=== PATIENT | female | born 1965 | race Caucasian/White ===

== ENCOUNTER 2016-12-10 21:18 | Inpatient (IN) | payer MEDICAID, OTHER ==
[~2016-12-10] VITALS: Ht 162.6 cm; Wt 64.9 kg
--- NOTE | 2016-12-10 21:46 | NUR ---
PT BIBRA, PT "FOUND ON THE SIDEWALK INFRONT OF APARTMENT" PER RA POSSIBLE EOTH. PT NONVERBAL. RR EVEN AND UNLABORED. NO SOB NOTED. NAD NOTED. NO NVD AT THIS TIME. PT GOWNED AND PLACED ON MONITOR WAITING FOR MD GOMEZ.
--- NOTE | 2016-12-10 21:59 | NUR ---
DR. MC AT BEDSIDE FOR EVAL.
[2016-12-10] MEDS ORDERED: NALOXONE HCL 0.4 MG/ML AMPUL IV ONE ×2 (22:00→22:30)
--- NOTE | 2016-12-10 22:00 | NUR ---
PT NOTED WITH PINNED POINT PUPILS
[2016-12-10] MEDS ORDERED: NALOXONE PREFILLED SYRINGE 2 MG/2 ML SYRINGE ONE ×2 (22:01→22:12)
--- NOTE | 2016-12-10 22:08 | NUR ---
NACRAN 2MG IVP GIVEN, VERBAL ORDERS PER DR. MC.
--- NOTE | 2016-12-10 22:10 | NUR ---
DR. DEVINE AT BEDSIDE. VERBAL ORDERS TO GIVE PT IV 1L NS BOLUS NOW, PT MEDICATED.
[2016-12-10 22:15] LABS: BASOPHILS % (AUTO) 0.5 % (0.0-2.0); EOSINOPHILS # (AUTO) 0.2 /CMM (0.0-0.7); EOSINOPHILS % (AUTO) 2.3 % (0.0-6.0); HEMATOCRIT 40 % (33-45); HEMOGLOBIN 13.4 g/dL (11.5-14.8); LYMPHOCYTES # (AUTO) 3.1 /CMM (0.8-4.8); LYMPHOCYTES % (AUTO) 43.1 % (20.0-44.0); MEAN CORPUSCULAR HEMOGLOBIN 33 PG (26.0-33.0); MEAN CORPUSCULAR HGB CONC 33 g/dl (31.0-36.0); MEAN CORPUSCULAR VOLUME 98 fL (82-100); MONOCYTES # (AUTO) 0.5 /CMM (0.1-1.30); MONOCYTES % (AUTO) 7.3 % (2.0-12.0); NEUTROPHILS # (AUTO) 3.3 /CMM (1.8-8.9); NEUTROPHILS % (AUTO) 46.8 % (43.0-81.0); PLATELET COUNT (AUTO) 331 /CMM (150-450); RDW COEFFICIENT OF VARIATION 13.8 (11.5-15.0); RED BLOOD CELL COUNT(AUTO) 4.08 MIL/uL (4.0-5.2); WHITE BLOOD COUNT (AUTO) 7.1 K/uL (4.3-11.0)
--- NOTE | 2016-12-10 22:19 | NUR ---
NARCAN 2MG IVP GIVEN PER DR. DEVINE VERBAL ORDERS.
--- NOTE | 2016-12-10 22:21 | NUR ---
URINE COLLECTED. CALLED LAB FOR CONCRETE BATCH PLANT OPERATOR.
[2016-12-10 22:25] LABS: CALCIUM, SERUM 8.6 mg/dL (8.5-10.1); CARBON DIOXIDE 27 mmol/L (21-32); CHLORIDE 104 mmol/L (98-107); CREATININE 0.6 mg/dL (0.6-1.3); GLUCOSE 97 mg/dL (74-106); POTASSIUM 3.2 mmol/L (3.5-5.1); SODIUM SERUM 141 mmol/L (136-145); UREA NITROGEN, BLOOD 2 mg/dL (7-18)
--- NOTE | 2016-12-10 22:25 | NUR ---
PT TO RADIOLOGY FOR CT.
[2016-12-10 22:29] LABS: PROTHROMBIN TIME 10.7 SECS (9.5-12.7)
[2016-12-10] MEDS ORDERED: IV NS 0.9% 1,000 ML BAG IV ONE (22:30)
--- NOTE | 2016-12-10 22:30 | NUR ---
PT RETURNED FROM CT.
[2016-12-10 22:31] LABS: ACETAMINOPHEN 0 ug/ml (10-30); ALANINE AMINOTRANSFERASE 30 U/L (12-78); ALBUMIN 3.7 g/dL (3.4-5.0); ALCOHOL, BLOOD 123 mg/dL (0-0); ALKALINE PHOSPHATASE 56 U/L (46-116); ASPARTATE AMINOTRANSFERASE 27 U/L (15-37); BILIRUBIN,DIRECT 0.1 mg/dL (0.0-0.2); BILIRUBIN,TOTAL 0.3 mg/dL (0.2-1.0); TOTAL PROTEIN, SERUM 6.4 g/dL (6.4-8.2)
[2016-12-10 22:33] LABS: TROPONIN I < 0.017 ng/mL (0.00-0.056)
--- NOTE | 2016-12-10 22:39 | NUR ---
RECTAL TEMP 96.2 DR. DEVINE MADE AWARE
[2016-12-10 22:45] LABS: APPEARANCE,URINE CLEAR (CLEAR); BILIRUBIN,URINE NEGATIVE (NEGATIVE); BLOOD, URINE NEGATIVE Ery/uL (NEGATIVE); KETONES,URINE NEGATIVE (NEGATIVE); LEUKOCYTE ESTERASE ,URINE NEGATIVE (NEGATIVE); NITRITE, URINE NEGATIVE (NEGATIVE); PROTEIN,URINE NEGATIVE (NEGATIVE); UGLUCOSE NEGATIVE (NEGATIVE); UROBILINOGEN,URINE 0.2 EU/dL (0.2)
[2016-12-10 22:49] LABS: COLOR,URINE STRAW (YELLOW)
--- NOTE | 2016-12-11 02:59 | NUR ---
PT RESPONSIVE TO PAINFUL STIMULI
[2016-12-11] MEDS ORDERED: IV NS 0.9% 1,000 ML BAG IV ONE (04:30)
--- NOTE | 2016-12-11 05:10 | NUR ---
PT RESPONSIVE TO VERBAL STIMULI. ABLE TO STATE NAME. DR. DEVINE MADE AWARE.
--- NOTE | 2016-12-11 07:13 | NUR ---
REPORT GIVEN TO TIN POST FOR JEANIE.
--- NOTE | 2016-12-11 07:15 | NUR ---
RECEIVED PATIENT, ALERT TO PAINFUL STIMULI. VITALS STABLE. WILL CONTINUE TO MONITOR.
--- NOTE | 2016-12-11 10:33 | NUR ---
PATIENT REMAINS LETHARGIC AND UNAROUSABLE, BUT VITALS REMAIN STABLE. PATIENT IS SLEEPING, WILL CONTINUE TO MONITOR.
[2016-12-11] MEDS ORDERED: POTASSIUM CL. PREMIX PERIPHER. 200 ML ONE (11:30)
[2016-12-11] MEDS: POTASSIUM CL. PREMIX PERIPHER. 50 ML IV SCH ×4 (11:36→15:08)
--- NOTE | 2016-12-11 12:34 | NUR ---
CALLED [facility] LAB MANAGER WAS PAGED.
--- NOTE | 2016-12-11 12:46 | NUR ---
DR CANNON ON THE PHONE WITH DR YODER.
--- NOTE | 2016-12-11 13:00 | NUR ---
PT PRESENT TO THE NAOMY, A/O x1 MUMBLING AND TRYING TO GET OFF THE STRETCHER. PATIENT IS SAFELY TRANSFERRED FROM THE STRETCHER TO THE BED WITHOUT ISSUE PATIENT IS CURRENTLY RECEIVING ELECTROLYTE REPLACEMENT . IV ACCESS INCLUDED 20 GAUGE RIGHT WRIST PATIENT NO REDNESS OR S/S OF INFECTION NOTED . PT IS REORIENTED AND LINENS CHANGED, DIAPER APPLIED , PATIENT HAS BEEN INCREASINGLY BECOMING AGGRESSIVE AND TRYING TO GET OUT OF BED. PATIENT IS EXTREMELY UNSTEADY AND GENERALIZED WEAKNESS EXPRESSED, PT TRIES TO REMOVE IV ACCESS, CHARGE NURSE SOON STATES TO PLACE PATIENT IN BILATERAL WRIST RESTRAINTS FOR SAFETY BED IN LOWEST POSITION AND BED ALARM ON . RAIL UP. RN WILL CONTINUE TO MONITOR THE PATIENT FOR SAFETY AND REORIENT THE PATIENT NEEDED.
--- NOTE | 2016-12-11 13:29 | NUR ---
REPORT GIVEN TO FADY CASTLE FOR JEANIE.
[2016-12-11] MEDS ORDERED: HYDROCODONE/APAP 5/325MG 1 EACH TABLET PO PRN (13:30)
[2016-12-11] MEDS ORDERED: Z GUARD REMEDY 2 OZ OINT TP PRN (13:30)
[2016-12-11] MEDS ORDERED: MAG HYDROX/AL HYDROX/SIMETH 30 ML UDC PO PRN (13:30)
[2016-12-11] MEDS ORDERED: ONDANSETRON HCL/PF 4 MG/2 ML VIAL IVP PRN (13:30)
[2016-12-11] MEDS ORDERED: ACETAMINOPHEN 325 MG TABLET PO PRN (13:30)
[2016-12-11] MEDS ORDERED: MAGNESIUM HYDROXIDE 30 ML UDC PO PRN (13:30)
--- NOTE | 2016-12-11 13:51 | NUR ---
PATIENT TRANSPORTED TO [facility] VIA STRETCHER WITH EMT AND RN FOR ADMISSION. 1 BAG OF POTASSIUM ENDORSED TO RNFADY. PATIENT STABLE.
[2016-12-11] MEDS: IV NS 0.9% 1,000 ML IV PRN (19:44)
[2016-12-11 20:00] VITALS: BP 145/86
--- NOTE | 2016-12-11 20:00 | NUR ---
HARNESS PULLER FINAL PATIENT STABLE WITHOUT COMPLAINT 2 L NASAL CANULA PRESENT. PATIENT FALLING IN AND OUT OF SLEEP STILL DROWSY , BILATERAL WRIST RESTRAINT PRESENT. PM RN NOTIFIED AND REPORT O PATIENT GIVEN. PHOTOS TAKEN AND PLACED IN CHART . NO FURTHER ISSUES OR COMPLAINTS AT THIS TIME . WILL ENDORSE TO PM SHIFT FOR CONTINUATION OF CARE.
--- NOTE | 2016-12-11 21:30 | NUR ---
TELE-1/FAMILY DEVELOPMENT SPECIALIST PT TRANSFERRED TO ROOM 114-1 FOR 1:1 SITTER. PT FOUND TO HAVE PRESCRIPTION BOTTLE CONTAINING METHYLPHENIDATE ER 27MG AT BEDSIDE MEDICATION INVENTORIED AND SENT TO PHARMACY.
[2016-12-11] MEDS ORDERED: ZOLPIDEM TARTRATE 5 MG TABLET PO PRN (22:00)
[2016-12-12] VITALS: BP 134/75
[2016-12-12 04:00] VITALS: BP 128/90
--- NOTE | 2016-12-12 04:26 | NUR ---
TELE-1/LIFE SCIENCES TEACHER PT MUCH MORE ALERT AT THIS TIME. ANSWERING QUESTIONS APPROPRIATELY. A/Ox3. PT VERBALIZED THAT SHE WOULD COOPERATE WITH TREATMENT. RESTRAINTS RELEASED. PT AMBULATED TO THE RESTROOM WITH STEADY GAIT. 1:1 SITTER AT BEDSIDE FOR PT SAFETY.
[2016-12-12 06:22] LABS: BASOPHILS % (AUTO) 0.2 % (0.0-2.0); EOSINOPHILS # (AUTO) 0.1 /CMM (0.0-0.7); EOSINOPHILS % (AUTO) 1.5 % (0.0-6.0); HEMATOCRIT 40 % (33-45); HEMOGLOBIN 13.4 g/dL (11.5-14.8); LYMPHOCYTES # (AUTO) 1.6 /CMM (0.8-4.8); LYMPHOCYTES % (AUTO) 19.8 % (20.0-44.0); MEAN CORPUSCULAR HEMOGLOBIN 33 PG (26.0-33.0); MEAN CORPUSCULAR HGB CONC 34 g/dl (31.0-36.0); MEAN CORPUSCULAR VOLUME 99 fL (82-100); MONOCYTES # (AUTO) 0.8 /CMM (0.1-1.30); MONOCYTES % (AUTO) 10.1 % (2.0-12.0); NEUTROPHILS # (AUTO) 5.6 /CMM (1.8-8.9); NEUTROPHILS % (AUTO) 68.4 % (43.0-81.0); PLATELET COUNT (AUTO) 295 /CMM (150-450); RDW COEFFICIENT OF VARIATION 13.7 (11.5-15.0); RED BLOOD CELL COUNT(AUTO) 4.03 MIL/uL (4.0-5.2); WHITE BLOOD COUNT (AUTO) 8.2 K/uL (4.3-11.0)
[2016-12-12 06:44] LABS: CALCIUM, SERUM 8.7 mg/dL (8.5-10.1); CREATININE 0.7 mg/dL (0.6-1.3); MAGNESIUM 1.9 mg/dL (1.8-2.4); PHOSPHORUS 3.1 mg/dL (2.5-4.9)
--- NOTE | 2016-12-12 07:30 | NUR ---
RN NOTES RECEIVED PT RESTING IN BED, ASLEEP AT THIS TIME. SITTER AT BEDSIDE. ON O2 2LPM VIA NC. NO RESP DISTRESS NOTED. SR ON TELE MONITOR HR 90 AT THIS TIME. NO RESTRAINTS NOTED AT THIS TIME. KEPT COMFORTABLE, SFATY MAINTAINED. WILL CONT TO MONITOR. CALL LIGHT WITHIN REACH
[2016-12-12 08:00] VITALS: BP 132/69
[2016-12-12] MEDS: FOLIC ACID 1 MG TABLET PO SCH (08:52)
[2016-12-12] MEDS: PANTOPRAZOLE 40 MG TABLET.DR PO SCH (08:52)
[2016-12-12] MEDS: THIAMINE HCL 100 MG TABLET PO SCH (08:52)
[2016-12-12] MEDS: IV NS 0.9% 1,000 ML IV PRN (08:56)
[2016-12-12] MEDS: MULTIVITAMINS,THERAGRAN 1 UDTAB TABLET PO SCH (08:57)
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
[2016-12-12 12:00] VITALS: BP 125/81
[2016-12-12 16:00] VITALS: BP 139/88
--- NOTE | 2016-12-12 19:17 | NUR ---
RN NOTES PT RESTING IN BED, NO ACUTE CHANGE IN CONDITION. STILL NOTED WITH EPISODES OF CONFUSION AT TIMES. SITTER AT BEDSIDE, PT ABLE TO GO TO THE BATHROOM BRP. ALL DUE MEDS GIVEN, NEEDS ATTENDED. MONITORED PT ACCORDINGLY. ENDORSED TO LOUIS CASTLE FOR CONTINUITY OF CARE
[2016-12-12 20:00] VITALS: BP 121/64
--- NOTE | 2016-12-12 20:00 | NUR ---
SALES ACTIVITY MANAGER NOTES RECEIVED PTS ON BED AWAKE AND RESPONSIVE , ON TELE SR ON THE MONITOR , NO SOB NO DISTRESS NOTED . V/S STABLE AFEBRILE , WITH LEFT FA G#20 INTACT AND PATENT .IVF OF NS AT 100 CC/HR INFUSING WELL.ALL NEEDS ATTENDED TOO CALL LIGHT WITHIN REACH . KEPT PS CLEAN DRY AND COMFORTABLE.WITH 1:1 SITTER AT BEDSIDE.
[2016-12-13] VITALS: BP 115/70
[2016-12-13 04:00] VITALS: BP 117/75
[2016-12-13] MEDS: IV NS 0.9% 1,000 ML IV PRN (06:32)
--- NOTE | 2016-12-13 06:58 | NUR ---
SCIENTIFIC RECRUITER NOTES PTS REMAINS ON BED AWAKE AND RESPONSIVE , REMAINS ON TELE SR ON THE MONITOR . NO SIGNIFICANT CHANGE NOTED WILL ENDORSE TO RN DAY SHIFT FOR CONTINUITY OF CARE.ON 1:1 SITTER.
--- NOTE | 2016-12-13 07:00 | NUR ---
MAMMA LOGIST INITIAL NOTES REPORT RECEIVED AT THE BEDSIDE. PATIENT IS SLEEPING. NO SOB OR DISTRESS NOTED AT THIS TIME. PATIENT DOES NOT APPEAR TO BE IN PAIN. HEART RATE SR ON THE MONITOR. BED IN A LOW POSITION, SITTER AT THE BEDSIDE. WILL CONTINUE TO MONITOR.
[2016-12-13 08:00] VITALS: BP 107/63
[2016-12-13] MEDS: THIAMINE HCL 100 MG TABLET PO SCH (08:09)
[2016-12-13] MEDS: FOLIC ACID 1 MG TABLET PO SCH (08:09)
[2016-12-13] MEDS: PANTOPRAZOLE 40 MG TABLET.DR PO SCH (08:10)
[2016-12-13] MEDS: MULTIVITAMINS,THERAGRAN 1 UDTAB TABLET PO SCH (09:00)
--- NOTE | 2016-12-13 12:06 | NUR ---
RN NOTES PATIENT IS ASKING TO HAVE IV FLUIDS REMOVED FOR NOW. STATES THAT SHE WANTS A BREAK. WILL HOLD FLUIDS AND TELL DR YODER. Addendum: 12/13/16 at 1207 by JANIA BAEZ RN HAVE ENCOURAGED PATIENT TO INCREASE ORAL INTAKE. PATIENT STATES UNDERSTANDING.
[2016-12-13 16:00] VITALS: BP 119/77
--- NOTE | 2016-12-13 16:04 | NUR ---
RN NOTES RECEIVED A CALL FROM THE PATIENT'S MOTHER. MOTHER IS CONCERNED THAT THE REASON THE PATIENT IS IN THE HOSPITAL IS BECAUSE SHE MAY HAVE TRIED TO COMMIT SUICIDE. SHE STATES THAT SHE HAS MADE TWO OR THREE ATTEMPTS IN THE LAST THREE MONTHS. CALLED DR YODER TO INFORM AND SEE IF HE WOULD LIKE TO ADD A PSYCH CONSULT. WAITING FOR A RETURN CALL.
--- NOTE | 2016-12-13 16:40 | NUR ---
RN NOTES TALKED TO DR YODER WHO STATES THAT IT IS FINE FOR THE PATIENT TO BE OFF IV FLUIDS AND TO ENCOURAGE PO INTAKE. MD ASKS TO HAVE A PSYCH CONSULT PLACED FOR THE PATIENT. ORDERS CARRIED OUT.
--- NOTE | 2016-12-13 18:41 | NUR ---
MS RN CLOSING NOTES NO SIGNIFICANT CHANGES IN PATIENT CONDITION THROUGHOUT THE SHIFT. NO SOB OR DISTRESS NOTED AT THIS TIME. PATIENT DENIES PAIN. BED IN A LOW POSITION, CALL LIGHT WITHIN PATIENT REACH. WILL ENDORSE FOR JEANIE.
--- NOTE | 2016-12-13 19:30 | NUR ---
MS RN NOTE: PATIENT RESTING IN BED, NO ACUTE DISTRESS NOTED. BREATHING EVEN AND UNLABORED, NO SOB NOTED. IV TO LFA IN PLACE. BED LOCKED AND IN LOWEST POSITION, CALL LIGHT IN REACH. WILL CONTINUE TO MONITOR.
--- NOTE | 2016-12-13 20:00 | NUR ---
MS RN NOTE: PATIENT LOOKING FOR KEYS, NOT IN PATIENT BAG AND NOT LISTED IN BELONGINGS LIST FROM ER. INFORMED PATIENT THAT KEYS WERE NOT LISTED WHEN SHE ARRIVED TO OUR ER. WILL CONTINUE TO MONITOR.
--- NOTE | 2016-12-14 00:30 | NUR ---
MS RN NOTE: PATIENT CONTINUES TO REFUSE IV FLUIDS, ENCOURAGE ORAL FLUIDS. MD AWARE. WILL CONTINUE TO MONITOR.
--- NOTE | 2016-12-14 06:05 | NUR ---
MS RN NOTE: PATIENT RESTING IN BED, NO ACUTE DISTRESS NOTED. BREATHING EVEN AND UNLABORED, NO SOB NOTED. IV TO LFA IN PLACE. BED LOCKED AND IN LOWEST POSITION, CALL LIGHT IN REACH. WILL ENDORSE TO DAY NURSE TO CONTINUE WITH PLAN OF CARE.
--- NOTE | 2016-12-14 07:10 | NUR ---
ms rn initial notes Received patient in bed, asleep, head of bed elevated, no SOB or distress noted. On room air and tolerated well. Left forearm IV site # 20 intact and patent. No IVF infusing as endorsed by hourly shift nurse patient is refusing and MD aware. Kept patient clean and comfortable in bed, call light with in patient reach, will continue to monitor accordingly. Sitter at bedside for constant monitoring.
[2016-12-14] MEDS: PANTOPRAZOLE 40 MG TABLET.DR PO SCH (07:35)
[2016-12-14 08:00] VITALS: BP 103/64
[2016-12-14] MEDS: FOLIC ACID 1 MG TABLET PO SCH (08:24)
[2016-12-14] MEDS: THIAMINE HCL 100 MG TABLET PO SCH (08:25)
[2016-12-14] MEDS: MULTIVITAMINS,THERAGRAN 1 UDTAB TABLET PO SCH (08:26)
--- NOTE | 2016-12-14 12:18 | NUR ---
ms county agent notes Discharge instructions given to patient and able to understand instructions. Signed discharge paper and belonging list. Home medication taken from the pharmacy and given to patient. IV access discontinued and applied pressure to prevent bleeding. Informed patient to follow up with primary health care physician in 1-2 weeks and amenable. Per patient she is going to her friend house. Patient called Uber ride for transportation and accompanied by BOILERMAKER HELPER assigned. Patient left the hospital in stable condition via ambulatory. No signs and symptoms of distress or SOB, no complaint of pain or discomfort nor chest pain. MD and charge nurse aware. Vital signs checked and recorded.
== END 2016-12-14 12:17 | disposition home or self-care (01) | DRG 42 ==
LOC: ER 21:23 → TELE 12-11 12:44 → TELE1 12-11 13:58 → MEDSG1 12-13 09:50
PROVIDERS: ADMIT Internal Medicine; ATTEND Internal Medicine
DX: G31.2 Degeneration of nervous system due to alcohol (principal); F13.10 Sedative, hypnotic or anxiolytic abuse, uncomplicated; F10.10 Alcohol abuse, uncomplicated; F17.200 Nicotine dependence, unspecified, uncomplicated; F19.10 Other psychoactive substance abuse, uncomplicated; Y90.6 Blood alcohol level of 120-199 mg/100 ml; Z59.0 Homelessness
CPT/HCPCS: 36415; 70450-TC; 71010-TC; 72125-TC; 80048-TC; 80076-TC; 80305; 81000-TC; 82962-TC; 83735-TC; 84100-TC; 84484-TC; 85025-TC; 85730-TC; 87081-TC; A4606; G0480; J2310; J3480; J7030; Z7610

== ENCOUNTER 2019-09-02 21:26 | Emergency (ER) | payer OTHER ==
[~2019-09-02] VITALS: Ht 165.1 cm; Wt 67.1 kg
--- NOTE | 2019-09-02 21:40 | NUR ---
PT BIBRA [address] C/O LEG PAIN. HX GLF 10 DAYS, PT IS AAOX4, NOT IN RESPIRATORY DISTRESS, V/S STABLE, KEPT RESTED AND COMFORTABLE, WILL CONTINUE TO MONITOR, AWAITING ER MD FOR EVAL.
--- NOTE | 2019-09-02 23:48 | NUR ---
PER DR. KIDD, PT TO SEE SW/CM TOMORROW
--- NOTE | 2019-09-03 00:43 | NUR ---
Patient is resting comfortably in bed. Easily aroused. VSS.
--- NOTE | 2019-09-03 02:22 | NUR ---
PT ASLEEP. VSS.
--- NOTE | 2019-09-03 03:34 | NUR ---
Pt provided with water. vss.
--- NOTE | 2019-09-03 06:29 | NUR ---
PT AWAKE ON BED, NOT IN RESPIRATORY DISTRESS, V/S STABLE, KEPT RESTED AND COMFORTABLE, AWAITING FACING SLITTER FOR PLACEMENT.
[2019-09-03] MEDS ORDERED: ONDANSETRON 4 MG TAB.RAPDIS ONE ×2 (06:36→08:53)
--- NOTE | 2019-09-03 08:24 | NUR ---
PT GIVEN BREAKFAST TRAY VSS
[2019-09-03] MEDS ORDERED: ONDANSETRON HCL/PF 4 MG/2 ML VIAL IV ONE (08:30)
--- NOTE | 2019-09-03 08:55 | NUR ---
PT GIVEN ZOFRAN 8 MG PO PER MD
--- NOTE | 2019-09-03 19:53 | NUR ---
PT ASLEEP. VSS. EASILY AROUSED.
--- NOTE | 2019-09-03 22:01 | NUR ---
PT AWAKE. EASILY AROUSED.
--- NOTE | 2019-09-04 02:26 | NUR ---
PT is asleep. vss.
--- NOTE | 2019-09-04 03:48 | NUR ---
PT YELLING "SHUT UP OLD LADY" TO THE PT IN BED 14. VSS. PT AWAKE AND STABLE..
--- NOTE | 2019-09-04 05:47 | NUR ---
PT ASLEEP. VSS.
--- NOTE | 2019-09-04 08:31 | NUR ---
Assumed care patient is awake laert demands @ times noted patient able to moved side farhan side patient requsting for diaper change done keep patient clean and dry ,food tray given
--- NOTE | 2019-09-04 09:52 | NUR ---
JLUIS CYR CALLED FOR STATUS OF PT. PT WILL BE GOING TO [address] [facility]. WE CAN CALL FOR AMBULANCE AROUND 1030.
--- NOTE | 2019-09-04 10:41 | NUR ---
CALLED CALL THE CAR FOR TRANSPORT TO BOARD AND CARE. [facility] ETA 1230. TRIP NUMBER [id number].
--- NOTE | 2019-09-04 12:24 | NUR ---
EMS here for pick and transfer to Boarding care
[2019-09-04 12:36] VITALS: BP 133/67
--- NOTE | 2019-09-04 12:36 | NUR ---
Patient awake alert DC home to Boarding care in [facility] belongings given and WC
== END 2019-09-04 12:38 | disposition home or self-care (01) ==
LOC: ER 21:26
DX: S82.891A Other fracture of right lower leg, initial encounter for closed fracture (principal); Z59.0 Homelessness; Z98.890 Other specified postprocedural states; X58.XXXA Exposure to other specified factors, initial encounter; Y93.89 Activity, other specified; Y92.89 Other specified places as the place of occurrence of the external cause; Y99.8 Other external cause status
CPT/HCPCS: 96374; 99285; Q0162

== ENCOUNTER 2019-09-19 20:14 | Emergency (ER) | payer OTHER ==
[~2019-09-19] VITALS: Ht 162.6 cm; Wt 54.4 kg
--- NOTE | 2019-09-19 20:23 | NUR ---
BIBRA 860 FOR C/O L FOOT SWELLING AND PAIN X 6 DAYS. - TRAUMA. NOTED W/ R FOOT PAIN DUE TO RX
[2019-09-19] MEDS ORDERED: CEPHALEXIN MONOHYDRATE 500 MG CAPSULE PO ONE ×2 (20:30→20:46)
[2019-09-19] MEDS ORDERED: SULFAMETH/TRIMETH 800/160 MG 1 UDTAB TABLET PO ONE (20:30)
[2019-09-19] MEDS ORDERED: SULFAMETH/TRIMETH 800/160 MG 1 UDTAB TABLET ONE (20:47)
[2019-09-19 20:54] LABS: BASOPHILS # (AUTO) 0.1 /CMM (0.0-0.2); BASOPHILS % (AUTO) 0.4 % (0.0-2.0); EOSINOPHILS % (AUTO) 1.3 % (0.0-6.0); HEMATOCRIT 46 % (33-45); HEMOGLOBIN 15.3 g/dL (11.5-14.8); LYMPHOCYTES # (AUTO) 3.6 /CMM (0.8-4.8); LYMPHOCYTES % (AUTO) 28.5 % (20.0-44.0); MEAN CORPUSCULAR HGB CONC 33 g/dl (31.0-36.0); MEAN CORPUSCULAR VOLUME 95 fL (82-100); MONOCYTES # (AUTO) 0.8 /CMM (0.1-1.30); MONOCYTES % (AUTO) 6.1 % (2.0-12.0); NEUTROPHILS % (AUTO) 63.7 % (43.0-81.0); PLATELET COUNT (AUTO) 323 /CMM (150-450); RED BLOOD CELL COUNT(AUTO) 4.89 MIL/uL (4.0-5.2); WHITE BLOOD COUNT (AUTO) 12.5 K/uL (4.3-11.0)
[2019-09-19 21:06] LABS: CALCIUM, SERUM 10.3 mg/dL (8.5-10.1); CREATININE 0.7 mg/dL (0.6-1.3); POTASSIUM 4.5 mmol/L (3.5-5.1)
[2019-09-19 21:13] LABS: ALBUMIN 4.5 g/dL (3.4-5.0); BILIRUBIN,DIRECT 0.2 mg/dL (0.0-0.2); BILIRUBIN,TOTAL 0.9 mg/dL (0.2-1.0); TOTAL PROTEIN, SERUM 8.1 g/dL (6.4-8.2)
--- NOTE | 2019-09-20 04:15 | NUR ---
IV removed. Catheter intact and site benign. Pressure and 4x4 applied to site. No bleeding noted. Patient discharged to home in stable condition. Written and verbal after care instructions given. Patient verbalizes understanding of instruction and RX. Pt wheeled out. Homeless discharge signed. Pt provided with food and diapers.
[2019-09-20 04:16] VITALS: BP 121/72
== END 2019-09-20 04:16 | disposition home or self-care (01) ==
LOC: ER 20:14
DX: L03.116 Cellulitis of left lower limb (principal); Z98.890 Other specified postprocedural states; Z59.0 Homelessness
CPT/HCPCS: 36415; 73590-TC; 80048-TC; 80076-TC; 83605-TC; 85025-TC; 85730-TC; 87040-TC; 93971-TC

== ENCOUNTER 2019-09-21 15:45 | Inpatient (IN) | payer OTHER ==
[~2019-09-21] VITALS: Ht 162.6 cm; Wt 65.8 kg
--- NOTE | 2019-09-21 16:24 | NUR ---
Social service consult requested by for placement. ANDREW is familiar with the pt. from previous ED visit. FILTRATION SUPERVISOR met with the pt bedside. Pt is alert and oriented x 4 and pleasant with SW. Per pt, she was at [facility] board and care and left the facility on Thursday to meet with her boyfriend. Pt is now requesting to go back to the facility which she left. Pt states, she receives her SSI on Thursday and is willing to pay $600-$650 per month. FILTRATION SUPERVISOR attempted to call pt's boyfriend Dev per her request , no answer. ANDREW consulted with trimming caser Merry in regards to pt. being able to go back to [facility]. Merry to f/u with ADA. FILTRATION SUPERVISOR informed pt that she will not be able to assist her again, if pt decides to the leave the board and care again. Pt understood.
--- NOTE | 2019-09-21 17:01 | NUR ---
SPOKE WITH LESLIE REGARDING STATUS OF PT. JLUIS CYR WILL BE FOLLOWING UP WITH PLACEMENT. WILL CALL US WITH STATUS.
--- NOTE | 2019-09-22 08:31 | NUR ---
ASSESSED PT ON BED AWAKE AND ALERT, NOT IN RESPIRATORY DISTRESS, V/S STABLE, KEPT RESTED AND COMFORTABLE, FOOD TRAY PROVIDED, AWAITING TALENT DIRECTOR FOR PLACEMENT.
--- NOTE | 2019-09-22 11:54 | NUR ---
Social service consult was requested by for placement. SW met with the pt at bedside in the ER. Pt appears to be alert and oriented x4 (time, place, self and situation). Pt states, "I need a place to live. Either back to the facility or an apartment. I cannot be on the streets." Pt states that she was living in a facility that is located on [facility]. SW asked for the name of the facility or a phone number but the pt was unable to provide it. She stated that she was sent to the facility a few days ago from this hospital so SW will research the pt. Pt states that she would like to go back to the facility and states that she will receive her SSI check on September 22. Pt states that she can afford up to $650 a month because she also has her student loans and a bill to pay for. ADA consulted with the Watch Mechanic and was informed that the pt was placed a few days ago with V[facility]ana ([phone]). ADA called Vandana and she stated that she would be willing to take the pt back to the facility after meeting with the next day in the Emergency Room and receiving verbal confirmation from the pt that she would abide by the rules and pay the respected amount. ADA will consult with the MD regarding this plan.
--- NOTE | 2019-09-22 12:05 | NUR ---
ADA called the pts boyfriend, Dev ([phone]), and left a voicemail regarding wanting to speak to him about the pts discharge planning.
--- NOTE | 2019-09-22 12:06 | NUR ---
LOADER HELPER SORTING YARD/ MED RECON PATIENT UNABLE TO PROVIDE ANY INFO RE: HOME MEDICATION. PER PATIENT TO CALL THE FACILITY SHE USED TO LIVE. CALLED [facility] ([phone]), SPOKE WITH L[facility] AND STATED "PATIENT DOES NOT TAKE ANY MEDICATION DURING HER STAY AT THE FACILITY".
--- NOTE | 2019-09-22 12:33 | NUR ---
ADA consulted with the ER MD, Dr. Lucas, and informed him that the pt will be assessed by Vandana who had placed the pt in one of her facilities a few days ago. ADA stated that Vandana wants to ensure that the pt will abide by the rules and make the necessary payments for the facility. stated that he will admit the pt in that case. SW to follow up with the pts placement tomorrow.
--- NOTE | 2019-09-22 13:01 | NUR ---
CALLED [facility] ITS JANIA.
--- NOTE | 2019-09-22 13:18 | NUR ---
BED 328-2
--- NOTE | 2019-09-22 13:22 | NUR ---
BOARD AND CARE ARCHEOLOGIST CLASSICAL WILL COME TOMORROW TO EVALUATE THE PATIENT PER CHARGE NURSE
--- NOTE | 2019-09-22 13:27 | NUR ---
REPORT GIVEN TO CHERELLE RN MS UNIT
--- NOTE | 2019-09-22 13:36 | NUR ---
ADA received a call from the pts sister, Aliza ([phone]), who stated that the pts ex boyfriend called her after the SW left a message for him. Pts sister stated that the pt does not have a boyfriend anymore and that he even has a restraining order against her. Pts sister stated that the pt has been moving around from hospital to hospital and that has made it hard to keep track of her. ADA informed her that the pt may get admitted tonight.
--- NOTE | 2019-09-22 14:15 | NUR ---
MS/miter sawyer New admit from emergency room, for placement tomorrow. Patient uncooperative with admission, refusing to answer any questions or to have skin assessment. Refused to have personal belongings checked. Awaitng admitting orders from Dr Martins.
[2019-09-22 16:10] VITALS: BP 117/67
--- NOTE | 2019-09-22 18:23 | NUR ---
MS/RN End note Patient remains in stable condition, no needs. For placement tomorrow.
[2019-09-22] MEDS ORDERED: ACETAMINOPHEN 325 MG TABLET PO PRN (18:30)
[2019-09-22] MEDS ORDERED: ONDANSETRON HCL/PF 4 MG/2 ML VIAL IVP PRN (18:30)
[2019-09-22] MEDS ORDERED: Z GUARD REMEDY 2 OZ OINT TP PRN (18:30)
--- NOTE | 2019-09-22 19:30 | NUR ---
MS RN NOTES RECEIVED ON BED A/O X3,NO SOB,ASKING FOR DINNER FOOD,GIVEN.NO IV ACCESS,ADMITTED FOR PLACEMENT ONLY.CALL LIGHT IN REACH,NEEDS ANTICIPATED.
[2019-09-22 20:00] VITALS: BP 120/57
[2019-09-22 20:37] VITALS: BP 137/79
--- NOTE | 2019-09-23 07:32 | NUR ---
MS RN NOTES SLEEP WELL AT NIGHT,NO DISTRESS,AWAITING CASE MANAGEMENT FOR PLACEMENT.
--- NOTE | 2019-09-23 07:40 | NUR ---
MS/RN NOTE THE PATIENT IS RECEIVED IN BED. PATIENT IS ALERT AND ORIENTED X3. IN ROOM AIR AND DENIES SOB. RESPIRATION REGULAR AND UNLABORED. DENIES PAIN. THE PATIENT IS NOTED TO HAVE CAM BOOT ON RIGHT FOOT. BOOT ON, ASSESSED AND NO S/S POOR CIRCULATION NOTED. PATIENT HAS NO IV ACCESS. BED LOW AND LOCKED. SIDE RAILS UP X3. CALL LIGHT WITHIN REACH. WILL CONTINUE TO MONITOR.
[2019-09-23 08:00] VITALS: BP 114/75
[2019-09-23 16:01] VITALS: BP 98/50
--- NOTE | 2019-09-23 18:13 | NUR ---
MS/RN NOTE THE PATIENT IS ALERT AND ORIENTED X3. IN ROOM AIR AND SATURATION IS AT 98%. DENIES SOB. RESPIRATION REGULAR AND UNLABORED. DENIES PAIN/ RIGHT LEG WITH CAM BOOT. THE PATIENT IN NO APPARENT DISTRESS. NO AV ACCESS. BED LOW AND LOCKED. SIDE RAILS UP X3. CALL LIGHT WITHIN REACH. WILL ENDORSE TO SYSTEMATIC THEOLOGY PROFESSOR.
--- NOTE | 2019-09-23 19:40 | NUR ---
MS RN NOTES PATIENT RECEIVED SLEEPING IN BED, EASILY AWAKEN, ALERT AND ORIENTED X 3. ON ROOM AIR WITH NO SIGNS OF RESPIRATORY DISTRESS AT THIS TIME, WITH EVEN NON-LABORED BREATHING AND NO SIGNS OF SOB. NO SIGNS OF PAIN OR DISCOMFORT AT THIS TIME, PROVIDED COMFORT MEASURES. SAFETY PRECAUTIONS IN PLACE WITH BED IN THE LOWEST POSITION, BED LOCKED, BED ALARM ON, BILATERAL SIDE RAILS UP, AND CALL LIGHT WITHIN EASY REACH OF PATIENT. WILL CONTINUE TO MONITOR PATIENT.
[2019-09-23 20:00] VITALS: BP 91/48
--- NOTE | 2019-09-24 06:56 | NUR ---
MS RN NOTES PATIENT IN BED CURRENTLY SLEEPING EASILY AWAKEN BY NAME AND LIGHT TOUCH. ON ROOM AIR WITH NO SIGNS OF RESPIRATORY DISTRESS AT THIS TIME. MET ALL OF PATIENT NEEDS. SKIN KEPT CLEAN AND DRY. SAFETY PRECAUTIONS IN PLACE WITH BED LOCKED, BED IN THE LOWEST POSITION, BED ALARM ON, BILATERAL SIDE RAILS UP, AND CALL LIGHT WITHIN EASY REACH OF THE PATIENT, WILL ENDORSE PLAN OF CARE TO UPCOMING DAYSHIFT NURSE.
[2019-09-24 08:00] VITALS: BP 98/51
--- NOTE | 2019-09-24 16:40 | NUR ---
MS/RN NOTE PATIENT ALERT AND ORIENTED X3. DENIES PAIN. DENIES SOB. IN ROOM AIR AND OXYGEN SATURATION IS AT 98%. PROVIDED DISCHARGE EDUCATION AND THE PATIENT VERBALIZED UNDERSTANDING. PATIENT LEFT THE HOSPITAL IN STABLE CONDITION. THE PATIENT LEFT THE HOSPITAL VIA AMBULANCE.
== END 2019-09-24 16:42 | disposition home or self-care (01) | DRG 861 ==
LOC: ER 15:47 → MED 09-22 13:56
PROVIDERS: ADMIT Nurse Practitioner Acute Care; ATTEND Nurse Practitioner Acute Care
DX: Z73.6 Limitation of activities due to disability (principal); Z02.2 Encounter for examination for admission to residential institution; Z59.0 Homelessness
CPT/HCPCS: 87081-TC; G0378

== ENCOUNTER 2019-11-27 05:56 | Inpatient (IN) | payer MEDICAID ==
[~2019-11-27] VITALS: Ht 162.6 cm; Wt 65.3 kg
--- NOTE | 2019-11-27 06:05 | NUR ---
PT LYNN [address] [place] [address]; BODY PAIN X 30DAYS, NO OTHER MED COMPLAINT. AAOX4, VSS, NO ACUTE DISTRESS NOTED. AWAITING FOR MD GOMEZ. PT CONNECTED TO THE COMMUNICATIONS PROJECT MANAGER AND POX
[2019-11-27] MEDS ORDERED: HYDROMORPHONE 1 MG/1 ML DISP.SYRIN IV ONE (07:00)
[2019-11-27] MEDS ORDERED: IV NS 0.9% 1,000 ML BAG IV ONE (07:00)
[2019-11-27] MEDS ORDERED: CLINDAMYCIN 900 MG/6 ML VIAL ONE (07:00)
[2019-11-27] MEDS ORDERED: CLINDAMYCIN 600 MG in IV D5W 100 ML IV ONE (07:00)
[2019-11-27] MEDS ORDERED: PIPERACILLIN /TAZOBACTAM 3.375 G in IV D5W 50 ML IV ONE ×2 (07:00→10:30)
[2019-11-27] MEDS ORDERED: HYDROMORPHONE 1 MG/1 ML DISP.SYRIN ONE (07:01)
[2019-11-27] MEDS ORDERED: PIPERACILLIN /TAZOBACTAM 3.375 G VIAL IV ONE (07:01)
--- NOTE | 2019-11-27 07:10 | NUR ---
PT REFUSED TREATMENT. MADE AWARE
--- NOTE | 2019-11-27 07:16 | NUR ---
WASTED 1 MG OF DILAUDED W/ SARAHI RN
--- NOTE | 2019-11-27 07:22 | NUR ---
Pt. refused chest x-ray and CT exams, Dr. Nix aware.
--- NOTE | 2019-11-27 07:23 | NUR ---
PT VERBALLY ABUSIVE TO STAFF DESPITE THERAPEUTIC INTERVENTIONS.
--- NOTE | 2019-11-27 07:56 | NUR ---
Per report from Previous RN ( night ) patient is homeless declined Chcf and refused to sign.Patient is for Dc awaiting for WC .
--- NOTE | 2019-11-27 08:04 | NUR ---
CALLED CASE MANAGEMENT NO ANSWER WILL CALL BACK AT [id number]
--- NOTE | 2019-11-27 08:52 | NUR ---
CALLED CASE MANAGEMENT STILL NO ANSWER.
--- NOTE | 2019-11-27 08:52 | NUR ---
PT REFUSED VITAL SIGNS MONITORING.
--- NOTE | 2019-11-27 09:22 | NUR ---
CALLED 0232 NOT AVAILABLE. INFORMED HOUSE SUP. SHE WILL GO TO AND SPEAK WITH THEM.
--- NOTE | 2019-11-27 09:40 | NUR ---
JLUIS CYR CALLED WILL FOLLOW UP WITH ADMIN ABOUT GETTING A WHEELCHAIR.
--- NOTE | 2019-11-27 10:25 | NUR ---
PT AGREED TO COOPERATE AND BLOOD WORK FOR ADMISSION.
[2019-11-27] MEDS ORDERED: CLINDAMYCIN 900 MG in IV D5W 100 ML IV ONE (10:30)
--- NOTE | 2019-11-27 10:30 | NUR ---
Patient awake alert refused getting up stated ubable to walk patient verbally abusive to staff and yelling ,noted patient non follows command noted rt lower buttock lesions keep patient clean and dry ,place patient in gown and monitor ,patient agrees for in and out cath sterile technique observed urine obtained and sent to lab Marc Luis CNA assited me ,lab drawn obtained and send to lab
--- NOTE | 2019-11-27 10:43 | NUR ---
MOVE SHEET SUBMITTED AND CALLED FOR TELE BED.
[2019-11-27 10:52] LABS: BASOPHILS # (AUTO) 0.1 /CMM (0.0-0.2); BASOPHILS % (AUTO) 0.6 % (0.0-2.0); EOSINOPHILS % (AUTO) 0.4 % (0.0-6.0); HEMATOCRIT 41 % (33-45); HEMOGLOBIN 13.4 g/dL (11.5-14.8); LYMPHOCYTES % (AUTO) 20.7 % (20.0-44.0); MEAN CORPUSCULAR HGB CONC 33 g/dl (31.0-36.0); MEAN CORPUSCULAR VOLUME 100 fL (82-100); MONOCYTES % (AUTO) 6.9 % (2.0-12.0); NEUTROPHILS # (AUTO) 10.3 /CMM (1.8-8.9); NEUTROPHILS % (AUTO) 71.4 % (43.0-81.0); PLATELET COUNT (AUTO) 455 /CMM (150-450); RED BLOOD CELL COUNT(AUTO) 4.09 MIL/uL (4.0-5.2); WHITE BLOOD COUNT (AUTO) 14.4 K/uL (4.3-11.0)
[2019-11-27] MEDS ORDERED: IV NS 0.9% 500 ML BAG IV ONE (11:00)
[2019-11-27 11:01] LABS: APPEARANCE,URINE Turbid (CLEAR); BILIRUBIN,URINE Negative (NEGATIVE); BLOOD, URINE Negative Ery/uL (NEGATIVE); COLOR,URINE Yellow (YELLOW); KETONES,URINE Negative (NEGATIVE); LEUKOCYTE ESTERASE ,URINE Large (NEGATIVE); NITRITE, URINE Positive (NEGATIVE); PROTEIN,URINE Negative (NEGATIVE); UGLUCOSE Negative (NEGATIVE); UROBILINOGEN,URINE 0.2 EU/dL (0.2)
[2019-11-27 11:02] LABS: CALCIUM, SERUM 8.9 mg/dL (8.5-10.1); CARBON DIOXIDE 27 mmol/L (21-32); CHLORIDE 105 mmol/L (98-107); CREATININE 0.7 mg/dL (0.6-1.3); GLUCOSE 105 mg/dL (74-106); POTASSIUM 4.1 mmol/L (3.5-5.1); SODIUM SERUM 139 mmol/L (136-145); UREA NITROGEN, BLOOD 7 mg/dL (7-18)
[2019-11-27 11:04] LABS: RBC,URINE NONE SEEN /HPF (0-2); WBC,URINE TOO NUMEROUS TO COUN /HPF (0-3)
[2019-11-27 11:05] LABS: BACTERIA,URINE 3+ /HPF (None Seen); SQUAMOUS EPITHELIAL CELL,UR Few /HPF (None Seen)
[2019-11-27 11:08] LABS: ALANINE AMINOTRANSFERASE 18 U/L (12-78); ALBUMIN 2.7 g/dL (3.4-5.0); ALKALINE PHOSPHATASE 83 U/L (46-116); ASPARTATE AMINOTRANSFERASE 19 U/L (15-37); BILIRUBIN,DIRECT 0.1 mg/dL (0.0-0.2); BILIRUBIN,TOTAL 0.4 mg/dL (0.2-1.0); TOTAL PROTEIN, SERUM 5.9 g/dL (6.4-8.2)
--- NOTE | 2019-11-27 11:10 | NUR ---
CALLED [facility]IR[facility] PAGED.
--- NOTE | 2019-11-27 11:11 | NUR ---
Patient calm @ this time explained regarding meds antibiotic noted LAC 20 infusing well no edema no pain
--- NOTE | 2019-11-27 11:14 | NUR ---
Patient is demanding @ all times ,remain verbally abusive and rude comment to staff
--- NOTE | 2019-11-27 11:35 | NUR ---
BED 312-2 NURSE: SHA
--- NOTE | 2019-11-27 11:52 | NUR ---
Report given to Robe CASTLE 312-B
--- NOTE | 2019-11-27 11:53 | NUR ---
Noted patient has bilateral lower Ext .2 + edema Rt foot has support shoe boots she refused to removed the shoe
[2019-11-27 12:00] VITALS: BP 116/70
--- NOTE | 2019-11-27 12:05 | NUR ---
ILLUMINATING ENGINEER NOTES RECEIVED PT FROM E.R. STAFF [facility], ASSISTED TO BED, MADE COMFORTABLE, PT IS AWAKE, ALERT AND ORIENTED, STATED SHE IS HAVING BODY PAINS, NOT IN DISTRESS, NO SIGN OF DISCOMFORT, ROOM SET UP ORIENTATION PROVIDED TO PT, VERBALIZED UNDERSTANDING, LUNCH SERVED, AWAITING ADMITTING ORDERS FROM MD, KEPT PT COMFORTABLE.
--- NOTE | 2019-11-27 13:50 | NUR ---
DISTRIBUTION ENGINEERING TECHNOLOGIST NOTES PT SEEN AND EXAMINED BY DR. CONCEPCION, PLAN OF CARE DISCUSSED WITH PT, VERBALIZED UNDERSTANDING.
[2019-11-27] MEDS ORDERED: HYDROCODONE/APAP 5/325MG 1 EACH TABLET PO PRN (14:00)
[2019-11-27] MEDS ORDERED: MAG HYDROX/AL HYDROX/SIMETH 30 ML UDC PO PRN (14:00)
[2019-11-27] MEDS ORDERED: ONDANSETRON HCL/PF 4 MG/2 ML VIAL IVP PRN (14:00)
[2019-11-27] MEDS ORDERED: MAGNESIUM HYDROXIDE 30 ML UDC PO PRN (14:00)
[2019-11-27] MEDS ORDERED: Z GUARD REMEDY 2 OZ OINT TP PRN (14:00)
[2019-11-27] MEDS ORDERED: ZOLPIDEM TARTRATE 5 MG TABLET PO PRN (14:00)
[2019-11-27] MEDS ORDERED: MORPHINE SULFATE INJ 2 MG/ML DISP.SYRIN IV PRN (14:00)
[2019-11-27] MEDS ORDERED: ACETAMINOPHEN 325 MG TABLET PO PRN (14:00)
[2019-11-27] MEDS ORDERED: FEE PK DOSING 1 MIN EA MC ONE (14:10)
--- NOTE | 2019-11-27 14:11 | NUR ---
BULK STATION OPERATOR NOTES RECEIVED LACTIC ACID RESULT FROM LAB 3.3, DR. CONCEPCION INFORMED, ORDERS RECEIVED, NOTED AND CARRIED OUT.
[2019-11-27] MEDS ORDERED: IV 1/2NS 1000 ML 1,000 ML IV PRN (14:30)
[2019-11-27] MEDS ORDERED: VANCOMYCIN 1 GM in IV D5W 250 ML IV ONE (15:00)
[2019-11-27 16:00] VITALS: BP 88/48
--- NOTE | 2019-11-27 16:00 | NUR ---
RN NOTES PATIENT HAS A BODY TEMPERATURE OF 100.3F. SHE REFUSED TYLENOL. AFTER EXPLAINING TO HER THE RISKS OF NOT TAKING MEDICATION SHE STILL REFUSED THE TYLENOL.
--- NOTE | 2019-11-27 16:00 | NUR ---
RN NOTES ASKED PATIENT IF IT WAS OK TO TAKE PICTURES OF HER WOUNDS. PATIENT GAVE ME PERMISSION FOR ONLY FIVE PICTURES. THE REST OF THE WOUNDS SHE REFUSED TO LET ME TAKE PICTURES OF. OTHER THAN THE WOUND PICTURES I TOOK, SHE PRESENTS WITH SCABS ON BILATERAL ARMS, RIGHT UPPER CHEST, AND ON HER LEFT LOWER LEG. REFUSES TO LET ME ASSESSED HER RIGHT LEG WITH BRACE ON. IS AWARE.
--- NOTE | 2019-11-27 17:00 | NUR ---
RN NOTES PATIENT REFUSED WOUND CLEANING OF RIGHT BUTTOCK WOUND. EXPLAINED TO PATIENT THE RISK OF NOT BEING COMPLIANT TO SKIN CARE AND SHE STILL REFUSED.
[2019-11-27] MEDS ORDERED: HYDROMORPHONE 1 MG/1 ML DISP.SYRIN IV PRN (18:00)
[2019-11-27] MEDS: PIPERACILLIN /TAZOBACTAM 3.375 G in IV D5W 50 ML IV SCH ×2 (18:14→23:09)
--- NOTE | 2019-11-27 18:42 | NUR ---
COUNTER SERVER CLOSE NOTES PATIENT IS A/O X 4. NO SIGNS OF DISTRESS AND NO SHORTNESS OF BREATH IN ROOM AIR. IV L AC #20G INTACT NS 0.45 NS AT 75 ML/HR. SCHEDULED MEDICATIONS WERE GIVEN AND TOLERATED WELL. PATIENT COMPLAINT OF PAIN AND PAIN MEDICATION WAS GIVEN PER ORDERED. SAFETY MEASURES WERE GIVEN BED IS IN LOW POSITION WITH SIDE RAILS UP X 2 FOR SAFETY. CALL LIGHT WITHIN REACH. WILL ENDORSE TO THE NEXT SHIFT.
--- NOTE | 2019-11-27 19:30 | NUR ---
FLIGHT OPERATIONS MANAGER OPENING NOTE RECEIVED PATIENT IN BED. A/OX4. TOLERATING ROOM AIR. RESPIRATIONS ARE EVEN AND UNLABORED. NO S/S SOB NOTED. NO C/O PAIN AT THIS TIME. EXTERNAL TELE BOX READS SINUS TACH HR 104. IN NO APPARENT DISTRESS. IV ACCESS IN LAC#20 RUNNING 1/2 NS@75ML/HR. BED IS LOW AND LOCKED, HOB ELEVATED IN SEMI FOWLERS SIDE RIALS UP X2, CALL LIGHT WITHIN REACH. WILL CONTINUE TO MONITOR.
--- NOTE | 2019-11-27 19:34 | NUR ---
RN NOTES RECEIVED ORDERED FROM DR. CONCEPCION FOR LOVEVINIX.
[2019-11-27 20:00] VITALS: BP 94/50
[2019-11-27] MEDS: ENOXAPARIN SODIUM 40 MG/0.4 ML DISP.SYRIN SQ SCH (21:00)
--- NOTE | 2019-11-27 21:09 | NUR ---
DAIRY AND FOOD LABORATORY ASSISTANT NOTE 2100 SCHEDULED LOVENOX 40MG WAS REFUSED BY PATIENT. INFORMED OF RISK AND BENEFITS OF MEDICATION, PATIENT CONTINUES TO REFUSE. WILL CONTINUE TO MONITOR.
--- NOTE | 2019-11-27 23:29 | NUR ---
teletype mechanic note faxed over the face sheet to the psych unit for psych cons.
[2019-11-27] MEDS: VANCOMYCIN 0.75 GM in IV D5W 250 ML IV SCH (23:44)
[2019-11-28] VITALS: BP 105/57
--- NOTE | 2019-11-28 | NUR ---
registered nurse cardiac telemetry note informed patient she is npo d/t procedure tomorrow for ct of abdomen/ pelvis wo contrast. patient informed, acknowledged and agreed to npo status. cleaned food and drink from side table and room. will continue to monitor.
[2019-11-28 01:02] VITALS: BP 105/57
--- NOTE | 2019-11-28 04:00 | NUR ---
LINEN ROOM SUPERVISOR NOTE PATIENT REFUSED 0400 VITAL SIGNS. SHE ALSO REFUSED TO CHANGE LINEN. SHE IS SOILED AND REFUSES TO BE CLEANED. WILL ENDORSE TO NEXT SHIFT
[2019-11-28] MEDS: PIPERACILLIN /TAZOBACTAM 3.375 G in IV D5W 50 ML IV SCH ×4 (05:18→17:09)
--- NOTE | 2019-11-28 05:28 | NUR ---
television schedule coordinator note patient refused 0500 labs. said ok for lab to return at 0800. will endorse to am shift
--- NOTE | 2019-11-28 06:04 | NUR ---
MIS DIRECTOR CLOSING NOTE PATIENT IN BED. A/OX4. REMAINS TOLERATING ROOM AIR. RESPIRATIONS ARE EVEN AND UNLABORED. NO SOB NOTED. NO C/O PAIN T/O SHIFT. EXTERNAL TELE BOX READS SINUS RHYTHM. NO DISTRESS NOTED. IV ACCESS MAINTAINED IN LAC#20 RUNNING 1/2 NS@75ML/HR. BED REMAINS LOW AND LOCKED, HOB IS FLAT, CALL LIGHT WITHIN REACH. WILL ENDORSE TO NEXT SHIFT
--- NOTE | 2019-11-28 06:54 | NUR ---
pt refused xray @3254 ytulio
[2019-11-28] MEDS: VANCOMYCIN 0.75 GM in IV D5W 250 ML IV SCH ×2 (07:08→15:50)
--- NOTE | 2019-11-28 07:38 | NUR ---
rn notes patient received on room air, no sob noted, patient denies pain at this time. remains with L AC 20 with 1/2 NS @ 75 ml per hour. bed at the lowest setting, call light within reach, side rails up x2
--- NOTE | 2019-11-28 09:41 | NUR ---
WOUND CARE CONSULT: PT ADAMANTLY REFUSED SKIN ASSESSMENT AND WILL NOT ALLOW ANY TOUCHING. RECOMMEND SURGICAL AND DPM CONSULTS. PT STATES DOES NOT KNOW WHY SHE IS WEARING A BRACE ON HER RT LOWER EXTREMITY. DR GREENE AND DR REED NOTIFIED OF CONSULT REQUESTS. WILL SEE PRN. RECOMMENDATIONS MADE FOR SKIN PROTECTION AND DISCUSSED WITH NURSING STAFF. PT IS ON DOWLING ISOFLEX LOW AIRLOSS BED.
--- NOTE | 2019-11-28 12:36 | NUR ---
rn notes patient refuses all CT and xray. refuses medication at this time, iv medications x3
--- NOTE | 2019-11-28 13:02 | NUR ---
SW CONSULT: Metal Die Finisher reviewed pts chart and consulted with pts appointed nurse, Nichole, before conducting a psychiatric social worker supervisor consult to address the pts homeless status. Metal Die Finisher conducted the consult at bedside. Pt was reluctant to speak to SW and indicated her only request was pudding. Pt demanded SW bring her pudding or food, despite her NPO status. SW informed her the purpose of her visit and role within the hospital. Pt reported she did not want to answer anymore questions due to their repetitiveness. Pt reported she is homeless and refused any resources or services. Pt also refused to sing the Homeless Patient Waiver. TIN Varela singed as a witness of pts refusal, as well as SW; form filed in pts chart. SW left homeless resources related to COVID-19 and additional [facility] resources in the pts chart. Pt denied any suicidal or homicidal ideation despite stating, If the pain keeps going, I am going to eat a suicide pill! SW further assessed and asked the pt to elaborate on this statement, and if she had intent to follow through with hurting herself; pt yelled at SW and denied. SW noted in pts chart a previous suicide attempt when the pt jumped off a bridge. Per Nichole, a psych consult is pending for the pt at this time. Pt denied any history of psychiatric diagnosis or treatment. Pt reported she does not receive any income at this time. Pt reported she does not have a social support system. Pt was reluctant to answer anymore questions or further engage in the assessment. SW consulted with Middle School DirectorFrieda regarding pts self-neglect and inability to properly care for herself. According to pts history & physical in her medical record, Very unfortunate 54-year-old female with no significant medical history comes in complaining generalized body pain for the last 30 days. Patient has been wearing the same diaper for the last 30 days and defecating in the same diaper. She is transient. She states she had no other clothing to wear. She states she wears a diaper due to incontinence from spinal cord injury when she jumped off a bridge in the past for suicide attempt. After consultation, SW completed an APS report (Intake ID [id number]). A bag of clothing was noted in the pts room next to her bed. SW will contact pts RN to assess pts need for additional clothing before discharge. Aforementioned information endorsed to TIN Varela and Frieda, Middle School Director. Plastics Plater available for support as needed.
[2019-11-28] MEDS: HYDROCORTISONE 1% CREAM 28.35 GM TUBE TP SCH ×2 (13:34→16:22)
[2019-11-28] MEDS: DAKINS QUARTER STRENGTH (0.125%) 480 ML BOTTLE TOP SCH (13:34)
[2019-11-28 15:29] LABS: BASOPHILS # (AUTO) 0.1 /CMM (0.0-0.2); BASOPHILS % (AUTO) 0.6 % (0.0-2.0); EOSINOPHILS % (AUTO) 2.2 % (0.0-6.0); HEMATOCRIT 40 % (33-45); HEMOGLOBIN 13.2 g/dL (11.5-14.8); LYMPHOCYTES # (AUTO) 2.5 /CMM (0.8-4.8); LYMPHOCYTES % (AUTO) 20.7 % (20.0-44.0); MEAN CORPUSCULAR HGB CONC 33 g/dl (31.0-36.0); MEAN CORPUSCULAR VOLUME 100 fL (82-100); MONOCYTES # (AUTO) 0.9 /CMM (0.1-1.30); MONOCYTES % (AUTO) 7.2 % (2.0-12.0); NEUTROPHILS # (AUTO) 8.3 /CMM (1.8-8.9); NEUTROPHILS % (AUTO) 69.3 % (43.0-81.0); PLATELET COUNT (AUTO) 431 /CMM (150-450); RED BLOOD CELL COUNT(AUTO) 4.04 MIL/uL (4.0-5.2)
[2019-11-28 15:47] LABS: CALCIUM, SERUM 8.8 mg/dL (8.5-10.1); CREATININE 0.6 mg/dL (0.6-1.3); MAGNESIUM 2.2 mg/dL (1.8-2.4); PHOSPHORUS 3.9 mg/dL (2.5-4.9); POTASSIUM 3.8 mmol/L (3.5-5.1)
--- NOTE | 2019-11-28 15:56 | NUR ---
ADA NOTE: ADA contacted pt's RN, Nichole to follow up on pt's status, and determine whether the pt will need clothes upon discharge. Nichole reported the pt is still pending a psychiatric evaluation and will most likely not discharge today. Nichole also reported the pt will need clean clothing upon discharge as her clothing is soiled and malodorous. ADA will notify ADA scheduled tomorrow via email. Cost Accountant available for support as needed.
[2019-11-28 16:00] VITALS: BP 107/63
--- NOTE | 2019-11-28 17:57 | NUR ---
rn notes patient remains on room air, no sob noted, patient denies pain at this time and refuses every treatment, medication or tests. L AC 20 present. psych consult pending. bed at the lowest setting, call light within reach, side rails up x2.
--- NOTE | 2019-11-28 19:35 | NUR ---
MS RN OPENING NOTES PATIENT RESTING IN BED COMFORTABLY; A/OX4, PER AM SHIFT, PATIENT NON-COMPLIANT AND CHARGE NURSE AWARE; WILL MONITOR; BREATHING EVEN AND UNLABORED; NO SOB NOTED; TOLERATING ROOM AIR WELL; PATIENT ABLE TO MAKE NEEDS KNOWN; L AC # 20 INTACT AND PATENT; PATIENT REFUSING ASSESSMENT AND IVF; SAFETY PRECAUTIONS IMPLEMENTED; BED LOCKED IN LOW POSITION; SIDE RAILS X2; CALL LIGHT WITHIN REACH; WILL CONT TO MONITOR
[2019-11-28 20:00] VITALS: BP 107/71
[2019-11-28] MEDS: ENOXAPARIN SODIUM 40 MG/0.4 ML DISP.SYRIN SQ SCH (20:16)
--- NOTE | 2019-11-28 20:54 | NUR ---
MS RN NOTES REPORT GIVEN TO TIN SEALS FOR JEANIE
--- NOTE | 2019-11-28 21:00 | NUR ---
RN PM MS NOTE PATIENT SEEN. IN NO APPARENT DISTRESS. HEPLOCKED REFUSING IVF. STATES, "I DON'T WANT THAT, IM TRYING TO SLEEP AND IT MAKES ME HAVE TO PEE. DENIES SI/HI AT THIS TIME. PSYCH CONSULT PENDING. BED IN MED/HIGH POSITION PT STATES "I DONT WANT MY BED MOVED, ITS FINE THE WAY IT IS." PATIENT HAS CALL LIGHT VERBALIZED UNDERSTANDING TO CALL FOR ASSISTANCE IF NEEDED. WILL CONT TO MONITOR.
--- NOTE | 2019-11-28 23:43 | NUR ---
PATIENT REFUSING IV ANTIBIOTICS. INFORMED THAT HER CELLULITIS MIGHT GET WORSE IF SHE REFUSES ANTIBIOTICS AND SHE STATES, "I DON'T WANT IT RIGHT NOW. I WANT TO SLEEP AND THOSE THINGS MAKE ME PEE. I CAN GET THEM IN THE AM."
--- NOTE | 2019-11-29 05:52 | NUR ---
RN NOTES/REFUSAL FOR BLOOD DRAW: APPROACH BY AUTOMATIC SILK SCREEN PRINTER, PT REFUSING BLOOD DRAW FOR THE MORNING, EDUCATION PROVIDED TO PT, REGARDING RISK VS BENEFITS, PT REFUSED.
[2019-11-29] MEDS: PIPERACILLIN /TAZOBACTAM 3.375 G in IV D5W 50 ML IV SCH ×5 (06:00→17:29)
--- NOTE | 2019-11-29 06:20 | NUR ---
REFUSED ABX; REFUSED BATHING/SKIN CARE. patient refused zosyn iv abx ; patient covered in feces and urine patient refused to be touched. patient allowed bed sheets to be changed, feces caked on buttucks. sheets changed rails disinfected. informed patient that when she asks that we could clean up her person. pt states, "It hurts too much to be touched right now i don't want it done. reviewed need for antibiotics and pt states, " no i don't want it. i lived on the streets for so long i i get by. "
[2019-11-29 08:00] VITALS: BP 110/64
[2019-11-29] MEDS: VANCOMYCIN 0.75 GM in IV D5W 250 ML IV SCH ×5 (08:00→16:00)
[2019-11-29] MEDS: DAKINS QUARTER STRENGTH (0.125%) 480 ML BOTTLE TOP SCH (08:57)
[2019-11-29] MEDS: HYDROCORTISONE 1% CREAM 28.35 GM TUBE TP SCH ×2 (08:57→16:51)
--- NOTE | 2019-11-29 12:28 | NUR ---
REFUSING TO BE CLEANED UP WELL REFUSING ALL MEDS AND TREATMENTS.
--- NOTE | 2019-11-29 13:48 | NUR ---
FLIGHT CONTROL SPECIALIST conducted chart review and noticed pt has yet not been evaluated by psychiatrist. FLIGHT CONTROL SPECIALIST contacted MS3 SABRINA Pleitez and requested her to f/u with [facility] in regards to psych consult that was requested two days ago. SABRINA Pleitez stated, she refaxed psychiatric consult request to [facility].
[2019-11-29 16:00] VITALS: BP 161/60
--- NOTE | 2019-11-29 18:00 | NUR ---
CONT. TO REFUSE ANTIBIOTICS,TREATMENTS,WOUND CARE AND IV FLUIDS,BUT IS EATING.STILL UNKEMPT AND HAS DRIED STOOL ON BODY.
--- NOTE | 2019-11-29 19:30 | NUR ---
MS/RN OPENING NOTES RECEIVED PATIENT IN BED RESTING. PATIENT IS ALERT AND ORIENTED X 4. PER PERVIOUS NURSE, PATIENT IS REFUSING MEDICATIONS, WOUND TREATMENTS, AND ANTIBIOTIC THERAPY. NO SIGNS OF SOB, NO RESPIRATORY DISTRESS NOTED. PATIENTS BREATHING IS EVEN AND UNLABORED, ON ROOM AIR. PATIENT REMOVED IV ACCESS, THE RISK AND BENEFITS HAVE BEEN EXPLAINED TO THE PATIENT OF IV TREATMENTS. SAFETY MEASURES ARE IN PLACE BED IS LOCKED AND IN THE LOWEST POSITION, WITH SIDE RAILS UP X 2. CALL LIGHT IS WITHIN REACH, WILL CONTINUE TO MONITOR PATIENT THOUGHT OUT SHIFT.
[2019-11-29] MEDS: MEROPENEM 1 G in IV NS 0.9% 100 ML IV SCH (20:00)
--- NOTE | 2019-11-29 20:30 | NUR ---
MS/RN NOTES PATIENT REFUSED MEDICATION FOR 2000HRS AND 2100HRS. PATIENT STATED, " I DON'T TAKE ANYTHING WITH ANTI IN IT, AND I DON'T TAKE OTHER MEDICATIONS". PATIENT IS UNKEPT, AND DOES NOT WANT TO BE CLEANED. WILL CONTINUE TO MONITOR.
[2019-11-29 20:40] VITALS: BP 126/68
[2019-11-29] MEDS: ENOXAPARIN SODIUM 40 MG/0.4 ML DISP.SYRIN SQ SCH (21:00)
--- NOTE | 2019-11-29 22:05 | NUR ---
MS/RN NOTES DR. MOORE SAW PATIENT, AWAITING FURTHER ORDERS. WILL CONTINUE TO MONITOR PATIENT.
[2019-11-29] MEDS ORDERED: BENZTROPINE MESYLATE (2MG/2ML) 2 MG/2 ML AMPUL IM PRN (22:30)
[2019-11-29] MEDS ORDERED: HALOPERIDOL LACTATE INJ 5 MG/ML VIAL IM PRN (22:30)
[2019-11-29] MEDS: BENZTROPINE MESYLATE (1 MG) 1 MG TABLET PO SCH (22:46)
[2019-11-29] MEDS: HALOPERIDOL LACTATE 10 MG/5 ML UDC PO SCH (22:46)
[2019-11-29] MEDS: VALPROIC ACID 250 MG/5 ML UDC GT SCH (22:47)
--- NOTE | 2019-11-29 22:57 | NUR ---
PATIENT TOOK MEDICATIONS ORDERED BY PSYCHIATRIST . WITH JUST THE REQUEST THEY BE OPENED IN FRONT OF HER. PATIENT REFUSING IV INSERTION AND IV ANTIBIOTIC.
--- NOTE | 2019-11-30 | NUR ---
REFUSED VANCOMYCIN ADMINISTRATION. PATIENT REFUSED ANTIBIOTIC. STATES "i DON'T TAKE NO ANTIBIOTICS. I DON'T TAKE ANYTHING WITH ANTI IN THE TITLE. " PATIENT INFORMED OF BENEFITS. INFORMED THAT HER CONDITION AND INFECTION COULD GET WORSE. PATIETN STILL REFUSING
--- NOTE | 2019-11-30 02:24 | NUR ---
PATIENT REFUSED WOUND CARE. STATES "I DON'T WANT TO BE TOUCHED.
[2019-11-30] MEDS: MEROPENEM 1 G in IV NS 0.9% 100 ML IV SCH ×3 (04:00→20:00)
--- NOTE | 2019-11-30 06:10 | NUR ---
MS/RN CLOSING NOTES PATIENT IS RESTING IN BED ALERT AND ORIENTED X 4. DURING SHIFT PATIENT WAS REFUSING MEDICATIONS AT TIMES, WOUND TREATMENTS, AND ANTIBIOTIC THERAPY. NO SIGNS OF SOB, NO RESPIRATORY DISTRESS NOTED. PATIENTS BREATHING IS EVEN AND UNLABORED, ON ROOM AIR. PATIENT REMOVED IV ACCESS, THE RISK AND BENEFITS HAVE BEEN EXPLAINED TO THE PATIENT OF IV TREATMENTS. SAFETY MEASURES ARE IN PLACE BED IS LOCKED AND IN THE LOWEST POSITION, WITH SIDE RAILS UP X 2. CALL LIGHT IS WITHIN REACH. WILL ENDORSE CARE TO DAY SHIFT.
[2019-11-30 08:00] VITALS: BP 105/69
[2019-11-30] MEDS: VANCOMYCIN 0.75 GM in IV D5W 250 ML IV SCH ×3 (08:00)
[2019-11-30] MEDS: HALOPERIDOL LACTATE 10 MG/5 ML UDC PO SCH ×4 (08:34→17:00)
[2019-11-30] MEDS: BENZTROPINE MESYLATE (1 MG) 1 MG TABLET PO SCH ×4 (08:34→17:00)
[2019-11-30] MEDS: VALPROIC ACID 250 MG/5 ML UDC GT SCH ×4 (08:34→17:00)
--- NOTE | 2019-11-30 08:38 | NUR ---
RN NOTE Patient is refusing IV insertion and IV abx at this time.
[2019-11-30] MEDS: HYDROCORTISONE 1% CREAM 28.35 GM TUBE TP SCH ×2 (09:00→17:00)
[2019-11-30] MEDS: DAKINS QUARTER STRENGTH (0.125%) 480 ML BOTTLE TOP SCH (09:00)
[2019-11-30 16:00] VITALS: BP 99/81
--- NOTE | 2019-11-30 18:10 | NUR ---
RN CLOSING NOTE Patient is resting in bed, A/O x4, showing no signs of acute distress or SOB, stable on RA. Patient refuse IV line and IV abx. Patient refused afternoon and evening medications. Patient refused skin assessment. MD made aware. Patient allowed to change linens, gown and chucks. Bed is in lowest position, side rails x3 in upright position, fall, safety and aspiration precautions enforced. Will endorse to building maintenance supervisor for JEANIE.
--- NOTE | 2019-11-30 19:10 | NUR ---
RN OPENING NOTES Received patient asleep on bed, on RA. No respiratory distress or s/sx of distress at this time. Pt refused any treatment at this time. No IV access, MD aware. Kept on bed comfortable. Call light within easy reach. Will continue to monitor accordingly.
--- NOTE | 2019-11-30 20:33 | NUR ---
RN NOTES Patient refused IV ATB Merrem at this time. Refused IV access, was aware. Pt refused any treatment at this time. Pt noted isolated herself. Will continue to monitor accordingly.
[2019-11-30] MEDS: ENOXAPARIN SODIUM 40 MG/0.4 ML DISP.SYRIN SQ SCH (20:44)
[2019-12-01] MEDS: MEROPENEM 1 G in IV NS 0.9% 100 ML IV SCH ×3 (04:00→20:00)
--- NOTE | 2019-12-01 06:40 | NUR ---
RN CLOSING NOTES Patient asleep on bed, refusing any treatment/intervention. No medications given as ordered, pt refused IV access. No new unusualities noted. Patient noted no s/sx of discomfort as observed. Endorsed to the next shift.
--- NOTE | 2019-12-01 07:30 | NUR ---
RN Open Notes Patient is in bed awake and alert with no signs of dirstress and no shortness of breath in room air. safety measures are followed with bed is the lowest position side rails up x 2 for safety. Call light within reach. Will continue to monitor.
[2019-12-01 08:00] VITALS: BP 99/59
--- NOTE | 2019-12-01 08:30 | NUR ---
MS/RN Opening note Reported by Marquise/RN, received patient in bed AO x 4, able to responds all stimuli, patient refused wound treatment and skin assess in this morning, also refused medications. Respiratory even and unlabored in room air, no sob observed. Skin is warm to touch, keep clean/dry, no IV site and MD aware. Keep bed in locked with elevated HOB for secure airway and aspiration precaution. Call light within reach, will continue to monitor.
--- NOTE | 2019-12-01 08:30 | NUR ---
RN MS NOTES REPORT GIVEN TO NICHOLAS CASTLE FOR CONTINUITY OF CARE.
[2019-12-01] MEDS: HALOPERIDOL LACTATE 10 MG/5 ML UDC PO SCH ×3 (09:00→16:19)
[2019-12-01] MEDS: HYDROCORTISONE 1% CREAM 28.35 GM TUBE TP SCH ×2 (09:00→16:19)
[2019-12-01] MEDS: DAKINS QUARTER STRENGTH (0.125%) 480 ML BOTTLE TOP SCH (09:00)
[2019-12-01] MEDS: BENZTROPINE MESYLATE (1 MG) 1 MG TABLET PO SCH ×3 (09:00→16:19)
[2019-12-01] MEDS: VALPROIC ACID 250 MG/5 ML UDC GT SCH ×3 (09:00→16:18)
--- NOTE | 2019-12-01 13:05 | NUR ---
Patient refused morning and afternoon meds include IV ATB, stated "I don't want to any medications."
[2019-12-01 16:00] VITALS: BP 121/72
--- NOTE | 2019-12-01 18:00 | NUR ---
MS/RN Closing note Patient in bed comfortably, patient refused all scheduled medication, IV ATB and wound care/treatment. Respiratory even and unlabored in room air, skin is warm to touch, patient has no IV site due to patient uncooperative medical care. Keep bed in locked with elevated HOB for ensure airway and aspiration precaution. Call light within reach, will endorse shift leader.
--- NOTE | 2019-12-01 20:00 | NUR ---
MS/RN OPENING NOTES RECEIVED PATIENT WITH BEHAVIOR CONCERN, PREFER TO ISOLATE SELF INSIDE HER ROOM, SHOUTS AT THE NURSE AND WANT HER DOOR CLOSED, IRRITABLE AND UPSET WHEN BEING PROVIDED CARE, PATIENT REFUSE ALL CARE AND EASILY GET UPSET , UNABLE TO CARE AND MONITORED FOR ANY S/S OF CHANGES,
[2019-12-01] MEDS: ENOXAPARIN SODIUM 40 MG/0.4 ML DISP.SYRIN SQ SCH (20:33)
--- NOTE | 2019-12-01 21:03 | NUR ---
MS/RN NOTES PATIENT BELONGINGS COLLECTED WITH GLOBAL HUMAN RESOURCES DIRECTOR AND SOME CIGARETTES, DOOR WAS LEFT OPEN AND DISCUSSES PROTOCOL AND NO SMOKING INSIDE THE ROOM, PATIENT ROOM WITH SMELL OF CIGARETTE, AND CHARGE NURSE WITH SECURITY ASSISTED FOR SAFETY, PATIENT SCREAMED AND CURSED THE NURSE, PATIENT WAS ASKED TO AVOID CUSING AND VIOLENT TEMPER BY DISCUSSING THE SEVERITY OF HARM AND DANGER, UNABLE TO LISTEN AND UNABLE TO TEACH REQUIRE MD AND CASE MANAGEMENT FOLLOW UP.
--- NOTE | 2019-12-01 21:58 | NUR ---
MS/RN NOTES MD JACKSON WAS MADE AWARE REGARDING PATIENT BEHAVIOR AND WITH OBSERVE AND CIGARETTE SMELL IN ROOM, DISCUSSED PATIENT NON COMPLIANCE TO ALL TREATMENT, UNABLE TO PROVIDE CARE.
--- NOTE | 2019-12-01 22:29 | NUR ---
MS/RN NOTES PATIENT SCREAMED FOR HELP AND VERBALIZED WANTING SOMETHING TO EAT, PROVIDED SNACKS, AND DISCUSSED NEED TO HAVE TREATMENT FOR HER BEDSORE, TO MONITOR,BUT PATIENT REPORTED THAT SHE WANTS TO BE TRANSFERED TO ANOTHER HOSPITAL OR STATE AND THAT SHE REFUSE MEDICATION FOR PSYCH,AND DO NOT WANT PAIN MEDICATION BUT PREFER DIFFERENT KIND.
[2019-12-02 00:15] VITALS: BP 122/72
[2019-12-02] MEDS: MEROPENEM 1 G in IV NS 0.9% 100 ML IV SCH ×2 (04:00→12:00)
--- NOTE | 2019-12-02 06:11 | NUR ---
312-2 MS/RN NOTES PATIENT SLEPT AND REFUSED TO BE TREATED AND NON COMPLIANT WITH MEDICATION REGIMEN BUT ABLE TO EAT WELL.ON ROOM AIR , RESPIRATIONS EVEN AND UNLABORED, SKIN WARM TO TOUCH, PATIENT BELONGINGS WITHIN REACH, WILL MONITOR, BED LOCKED, CALL LIGHTS WITHIN REACH.
[2019-12-02 08:00] VITALS: BP 116/73
--- NOTE | 2019-12-02 08:00 | NUR ---
MS/RN Opening note Received patient in bed, AO x 3 able to all stimuli. Respiratory even and unlabored in room air and no distress observed. Skin is warm to touch, patient refused skin assess and wound treatment this morning. Keep bed in locked with elevated HOB for secure airway and aspiration precaution. Call light within reach, will continue to monitor.
[2019-12-02] MEDS: BENZTROPINE MESYLATE (1 MG) 1 MG TABLET PO SCH ×3 (08:43→17:00)
[2019-12-02] MEDS: HALOPERIDOL LACTATE 10 MG/5 ML UDC PO SCH ×3 (08:43→17:00)
[2019-12-02] MEDS: DAKINS QUARTER STRENGTH (0.125%) 480 ML BOTTLE TOP SCH (08:43)
[2019-12-02] MEDS: VALPROIC ACID 250 MG/5 ML UDC GT SCH ×3 (08:43→17:00)
[2019-12-02] MEDS: HYDROCORTISONE 1% CREAM 28.35 GM TUBE TP SCH ×2 (08:44→17:00)
--- NOTE | 2019-12-02 09:00 | NUR ---
Patient refused all scheduled medications and wound care.
[2019-12-02] MEDS ORDERED: HALO2ORA3 PO (11:13)
[2019-12-02] MEDS ORDERED: BENZ1TAB7 PO (11:13)
[2019-12-02] MEDS ORDERED: DIVA500T2 PO (11:13)
--- NOTE | 2019-12-02 12:49 | NUR ---
LICENSED MASTER SOCIAL WORKER met with the pt bedside to confirm if she is the same pt that was hospitalized at [facility] on 09/22/2019. Pt is the same patient that was hospitalized on 09/21 but has a different name under current hospitalization. Pt on 09/22/19 was discharged to a board and care facility with home health. Pt is alert and oriented x 3. Pt appears disheveled and unkempt. Pt is refusing care while at [facility]. Pt has stage 4 sacral wounds. When SW encouraged pt to follow plan of care by treatment team, pt stated, " that's not going to help". Pt is not cooperative in providing any further information to SW. Social Service is available for support as needed.
--- NOTE | 2019-12-02 14:40 | NUR ---
Patient transfer to board of care, given discharge instruction include prescription and side effect. Patient singed discharge forms. In stable vital sign.
[2019-12-02 16:00] VITALS: BP 97/64
--- NOTE | 2019-12-02 18:37 | NUR ---
MS/RN Closing note Patient is in bed, finished eating meal, [facility] will pic up pt around [address] [facility]. Patient signed discharge instruction form and belongings. Pt refused wound picture, wound treatment, and all scheduled medication. Respiratory even and unlabored in room air. Keep bed in locked with elevated HOB for secure airway and aspiration precaution. Call light within reach, will endorse explosive ordnance handler.
--- NOTE | 2019-12-02 19:30 | NUR ---
MS/RN OPENING NOTE REPORT RECIEVED FROM EMREY CASTLE. PT IN BED. IN NO APPARENT DISTRESS. DENIES PAIN. REVIEWED PLAN WITH PATIENT SHE IS TRANSFERRING TO [facility] IN CARE AT 2030. VERBALIZED UNDERSTANDING. DISCHARGE INSTRUCTIONS ALREADY SIGNED PACKET READY TO BE SENT. EMERY CALLED [facility] AND LEFT MESSAGE TO CALL BACK IF REPORT WANTED/NEEDED. PATIENT STILL REFUSING PICTURES OF WOUNDS. BED DOWN AND LOCKED SRX3 CALL LIGTH WITHIN REACH WILL CONT TO MONITOR.
[2019-12-02 20:00] VITALS: BP 127/69
--- NOTE | 2019-12-02 20:19 | NUR ---
CALLED BOARD [facility]. SPOKE WITH REP VALENTIN. GAVE REPORT ON PATIENT . WAS HUNG UP ON ABRUPTLY. CALL BACK AND LEFT MESSAGE WITH CALL BACK NUMBER IF SHE HAS ANY QUESTIONS CONFIRMED BOOT AND SHOE LABORER AT 8:30MPM.
[2019-12-02] MEDS: ENOXAPARIN SODIUM 40 MG/0.4 ML DISP.SYRIN SQ SCH (21:00)
--- NOTE | 2019-12-02 21:55 | NUR ---
PATIENT PICKED UP FOR DISCHARGE TO [facility]. PATIENT CLEANED. NO IV PRESENT. BELONGINGS RETURNED. SENT WITH DISCHARGE PAPERS SIGNED EARLIER. PT IN NO APPARENT DISTRESS. RESP EVEN UNLABORED. DENIES PAIN. BOOT APPLIED TO RIGHT ANKLE/LOWER LEG. PT TRANSPORTED TO VEHICLE BY VAISHALI COURTNEY.
--- NOTE | 2019-12-08 10:46 | NUR ---
ANDREW received a phone call from APS ADA Fernandez . BARON CABALLERO was following up on an APS report filed by ADA Chavez. [facility] provided BARON Fernandez with Board and care configuration management administrator Radha's contact number and pt's location address.
== END 2019-12-02 22:00 | disposition home or self-care (01) | DRG 383 ==
LOC: EDBD → ER 05:56 → MERGE 11:38 → TELE 11:38 → MED 11-28 08:58
PROVIDERS: ADMIT Student in an Organized Health Care Education/Training Program; ATTEND Student in an Organized Health Care Education/Training Program
DX: L03.319 Cellulitis of trunk, unspecified (principal); L89.159 Pressure ulcer of sacral region, unspecified stage; E44.0 Moderate protein-calorie malnutrition; E87.2 Acidosis; R32 Unspecified urinary incontinence; Z91.5 Personal history of self-harm; Z87.828 Personal history of other (healed) physical injury and trauma; L89.210 Pressure ulcer of right hip, unstageable; R21 Rash and other nonspecific skin eruption; Z76.5 Malingerer [conscious simulation]; Z59.0 Homelessness; Z91.19 Patient's noncompliance with other medical treatment and regimen; F25.9 Schizoaffective disorder, unspecified; L98.9 Disorder of the skin and subcutaneous tissue, unspecified; N39.0 Urinary tract infection, site not specified; F29 Unspecified psychosis not due to a substance or known physiological condition
CPT/HCPCS: 36415; 80048-TC; 80061-TC; 80076-TC; 80202-TC; 81000-TC; 83605-TC; 83735-TC; 84100-TC; 84484-TC; 85025-TC; 85730-TC; 87040-TC; 87081-TC; 87086-TC; 87186-TC; A6403; C1751; G0378; J1170; J1630; J1650; J2185; J2543; J3370; J3490; J7030; J7060

== ENCOUNTER 2020-02-01 10:35 | Inpatient (IN) | payer MEDICAID ==
[~2020-02-01] VITALS: Ht 162.6 cm; Wt 66.7 kg
[~2020-02-01 10:35] MED LIST: BENZ1TAB7 PO; DIVA500T2 PO; HALO2ORA3 PO
--- NOTE | 2020-02-01 10:59 | NUR ---
dr snider at bedside for eval.
[2020-02-01] MEDS ORDERED: CEFEPIME 1 GM in IV D5W 50 ML IV ONE (11:00)
[2020-02-01] MEDS ORDERED: VANCOMYCIN 1 GM in IV D5W 250 ML IV ONE (11:00)
[2020-02-01] MEDS ORDERED: MORPHINE SULFATE INJ 2 MG/ML DISP.SYRIN IV ONE (11:00)
[2020-02-01] MEDS ORDERED: ONDANSETRON HCL/PF 4 MG/2 ML VIAL IVP ONE (11:00)
--- NOTE | 2020-02-01 11:12 | NUR ---
iv line started blood drawn and sent to lab.
[2020-02-01 11:19] LABS: BASOPHILS # (AUTO) 0.1 /CMM (0.0-0.2); BASOPHILS % (AUTO) 0.6 % (0.0-2.0); EOSINOPHILS % (AUTO) 0.3 % (0.0-6.0); HEMATOCRIT 35 % (33-45); HEMOGLOBIN 11.6 g/dL (11.5-14.8); LYMPHOCYTES # (AUTO) 2.2 /CMM (0.8-4.8); LYMPHOCYTES % (AUTO) 12.8 % (20.0-44.0); MEAN CORPUSCULAR HGB CONC 33 g/dl (31.0-36.0); MEAN CORPUSCULAR VOLUME 94 fL (82-100); MONOCYTES # (AUTO) 1.5 /CMM (0.1-1.30); MONOCYTES % (AUTO) 8.6 % (2.0-12.0); NEUTROPHILS # (AUTO) 13.2 /CMM (1.8-8.9); NEUTROPHILS % (AUTO) 77.7 % (43.0-81.0); PLATELET COUNT (AUTO) 527 /CMM (150-450); RED BLOOD CELL COUNT(AUTO) 3.71 MIL/uL (4.0-5.2)
[2020-02-01] MEDS ORDERED: ONDANSETRON HCL/PF 4 MG/2 ML VIAL ONE (11:23)
[2020-02-01] MEDS ORDERED: MORPHINE SULFATE INJ 4 MG/ML DISP.SYRIN ONE (11:24)
[2020-02-01 11:28] LABS: CALCIUM, SERUM 9.5 mg/dL (8.5-10.1); CARBON DIOXIDE 26 mmol/L (21-32); CHLORIDE 96 mmol/L (98-107); CREATININE 0.6 mg/dL (0.6-1.3); GLUCOSE 121 mg/dL (74-106); POTASSIUM 4.2 mmol/L (3.5-5.1); SODIUM SERUM 131 mmol/L (136-145); UREA NITROGEN, BLOOD 11 mg/dL (7-18)
--- NOTE | 2020-02-01 11:28 | NUR ---
move sheet submitted
[2020-02-01] MEDS ORDERED: ACETAMINOPHEN ES 500 MG TABLET PO ONE (11:30)
[2020-02-01 11:42] LABS: ALANINE AMINOTRANSFERASE 41 U/L (12-78); ALBUMIN 2.7 g/dL (3.4-5.0); ALKALINE PHOSPHATASE 146 U/L (46-116); ASPARTATE AMINOTRANSFERASE 32 U/L (15-37); BILIRUBIN,DIRECT 0.1 mg/dL (0.0-0.2); BILIRUBIN,TOTAL 0.7 mg/dL (0.2-1.0); TOTAL PROTEIN, SERUM 7.3 g/dL (6.4-8.2)
[2020-02-01] MEDS ORDERED: ACETAMINOPHEN ES 500 MG TABLET ONE (12:07)
[2020-02-01] MEDS ORDERED: IV NS 0.9% 1,000 ML IV PRN (14:44)
--- NOTE | 2020-02-01 14:55 | NUR ---
report given to chelsea uribe. pt awaiting transfer to floor.
[2020-02-01] MEDS ORDERED: HYDROCODONE/APAP 5/325MG TABLET PO PRN (15:00)
[2020-02-01] MEDS ORDERED: Z GUARD REMEDY 2 OZ OINT TP PRN (15:00)
[2020-02-01] MEDS ORDERED: ONDANSETRON HCL/PF 4 MG/2 ML VIAL IVP PRN (15:00)
[2020-02-01] MEDS ORDERED: MORPHINE SULFATE INJ 2 MG/ML DISP.SYRIN IV PRN (15:00)
[2020-02-01] MEDS ORDERED: MAGNESIUM HYDROXIDE 30 ML UDC PO PRN (15:00)
[2020-02-01] MEDS ORDERED: MAG HYDROX/AL HYDROX/SIMETH 30 ML UDC PO PRN (15:00)
[2020-02-01] MEDS ORDERED: ACETAMINOPHEN 325 MG TABLET PO PRN (15:00)
[2020-02-01] MEDS ORDERED: FEE PK DOSING 1 MIN EA MC ONE (15:54)
[2020-02-01 16:00] VITALS: BP 89/60
--- NOTE | 2020-02-01 16:15 | NUR ---
PATIENT SITUATED IN ROOM 207
--- NOTE | 2020-02-01 16:40 | NUR ---
patient refused wound skin assessment,explained the importance of photo taken still refused.per patient " i dont want to move right now,leave me alone".emotional support given.
[2020-02-01] MEDS: CEFEPIME 1 GM in IV D5W 50 ML IV SCH ×2 (17:10→19:04)
--- NOTE | 2020-02-01 18:09 | NUR ---
tried again to take photo patient refused again,"i am eating will let you know when I'M ready".
--- NOTE | 2020-02-01 19:20 | NUR ---
MSRN FULLY AWAKE, PAIN ON SLIGHT MOVEMENT HALLEY LOWER EXT. REFUSED TO BE TOUCH AND ASSESSED. REFUSED PICTURES OF HER WOUNDS HALLEY SACRAL.. STATED HAVEN'T HAD ANY SLEEP AT ALL AND VERY TIRED, STATED "MAYBE TOMORROW"..SNACKS PROVIDED .
[2020-02-01 20:00] VITALS: BP 102/50
--- NOTE | 2020-02-01 20:20 | NUR ---
MSRN FOUND SOAK AND WET WITH URINE, TOTALLY BATHED, TOTAL BED CHANGED. AGREED TO HAVE BERRY CATH INSERTED, POST BATHED , INSERTED 16FR BERRY WITH GOOD URINE BACKFLOW CLEAR YELLOW. FOUL ODOR OF SACRAL WOUNDS REFUSED STILL TO BE PICTURED . STATED JUST WANTED TO GET DRY AND COMFORTABLE.. SNACKS PROVIDED, KEPT COMFORTABLE. REMINDED TO CALL STAFF FOR FURTHER NEEDS AND DISCOMFORTS. CALL LIGHT WITH IN REACH. REMINDED NOT TO TURN OFF IV PUMP. REVIEWED PAIN MGT AND PLAN OF CARE, APPEARS TO UNDERSTAND. CLOSELY WATCHED. COVID RESULTS STILL PENDING. ISOLATION PRECAUTIONS OBSERVED.
[2020-02-01] MEDS: VANCOMYCIN 1 GM in IV D5W 250 ML IV SCH (20:23)
--- NOTE | 2020-02-01 20:40 | NUR ---
MSRN VERBALIZING SEVERE PAIN ON LOWER EXT AND SACRAL, EVEN SLIGHT MOVEMENT. MORPHINE 2MG IVP ADMINISTERED ORDERED. BEDREST FOR NOW.
--- NOTE | 2020-02-02 00:52 | NUR ---
MSRN HEARD SCREAMING STATED HAS SEVERE PAIN ON HER SACRAL AND SHWETHA LOWER EXT. REFUSED MORPHINE AND NORCO. WANTED DIFFERENT MED WITH "OXY" PT STATED. INFORMED DR. YODER, AWAITING.
--- NOTE | 2020-02-02 00:55 | NUR ---
KAREN RECEIVED ORDER FORM DR. YODER.
[2020-02-02] MEDS ORDERED: oxyCODONE/APAP (5/325 MG) 1 UDTAB TABLET PO ONE (01:30)
--- NOTE | 2020-02-02 02:24 | NUR ---
MS RN NOTE PATIENT REFUSED PRN MORPHINE. MEDICATION WASTED AND WITNESSED WITH CO-RN.
[2020-02-02] MEDS ORDERED: oxyCODONE/APAP (5/325 MG) 1 UDTAB TABLET ONE (04:14)
[2020-02-02] MEDS: VANCOMYCIN 1 GM in IV D5W 250 ML IV SCH ×3 (04:23→20:00)
--- NOTE | 2020-02-02 04:30 | NUR ---
MSRN AWAKENED THIS TIME. VERBALIZES SHARP PAIN ON HER LEGS , PERCOCET ONE TIME ORDER ADMINISTERED. WENT BACK TO SLEEP. CLOSELY WATCHED
--- NOTE | 2020-02-02 06:57 | NUR ---
MSRN ASLEEP. GOOD URINE OUTPUT, 600 CC CLEAR YELLOW.IVF CONTINUED.
[2020-02-02 07:46] LABS: BASOPHILS # (AUTO) 0.1 /CMM (0.0-0.2); BASOPHILS % (AUTO) 0.6 % (0.0-2.0); EOSINOPHILS % (AUTO) 1.7 % (0.0-6.0); HEMATOCRIT 31 % (33-45); HEMOGLOBIN 10.3 g/dL (11.5-14.8); LYMPHOCYTES # (AUTO) 2.3 /CMM (0.8-4.8); LYMPHOCYTES % (AUTO) 17.4 % (20.0-44.0); MEAN CORPUSCULAR HGB CONC 33 g/dl (31.0-36.0); MEAN CORPUSCULAR VOLUME 96 fL (82-100); NEUTROPHILS # (AUTO) 9.4 /CMM (1.8-8.9); NEUTROPHILS % (AUTO) 72.3 % (43.0-81.0); PLATELET COUNT (AUTO) 487 /CMM (150-450); RED BLOOD CELL COUNT(AUTO) 3.27 MIL/uL (4.0-5.2)
--- NOTE | 2020-02-02 07:47 | NUR ---
MS RN OPENING NOTE PATIENT IN BED RESTING COMFORTABLY. PATIENT IN NO ACUTE DISTRESS. NO SOB NOTED. PATIENT BREATHING IS EVEN AND UNLABORED. PATIENT BED ALARM IS ON. SAFETY PRECAUTIONS IN PLACE. PATIENT IN BED IS LOCKED AND IN LOWEST POSITION. CALL LIGHT WITHIN REACH, WILL CONTINUE TO MONITOR.
[2020-02-02 08:00] VITALS: BP 95/56
[2020-02-02 08:02] LABS: ALBUMIN 1.9 g/dL (3.4-5.0); BILIRUBIN,TOTAL 0.2 mg/dL (0.2-1.0); CREATININE 0.6 mg/dL (0.6-1.3); PHOSPHORUS 3.1 mg/dL (2.5-4.9); TOTAL PROTEIN, SERUM 5.6 g/dL (6.4-8.2)
--- NOTE | 2020-02-02 10:49 | NUR ---
MS RN NOTE PATIENT REFUSING XR SACRUM AND COCCYX. PATIENT STATES " I HAVE SOME PAIN AND I WILL NOT DO ANYTHING UNTIL I GET OXYCODONE". INFORMED PATIENT THAT SHE HAS MORPHINE AND NORCO ORDERED PRN. PATIENT REFUSED ALL OTHER FORMS OF MEDICATION ORDERED FOR PAIN. EDUCATED RISKS VS BENEFITS. PATIENT CONTINUED TO REFUSE. INFORMED ZAKIA KEE THAT PATIENT REFUSING MORPHINE AND NORCO ORDERED AND WANTS OXYCODONE. VIDHYA MADE AWARE, AND STATES WILL SEE PATIENT.
--- NOTE | 2020-02-02 10:52 | NUR ---
ATTEMPTED XRAY @1050. PT IS REFUSING TO DO EXAM UNTIL PRESCRIBED PAIN MEDS FOR EXAM. TIN ALICIA IS AWARE. PLEASE CALL EXT [phone] WHEN PT IS READY FOR EXAM.
--- NOTE | 2020-02-02 11:24 | NUR ---
MS RN NOTE PATIENT REFUSING BLOOD DRAW FOR LABS. EDUCATED RISKS VS BENEFITS. PATIENT CONTINUED TO REFUSE.
--- NOTE | 2020-02-02 11:47 | NUR ---
MS RN NOTE SPOKE WITH ZAKIA KEE REGARDING PATIENT CARE. ORDER FOR OXYCODONE 5/325MG TAB Q4H PO PRN. INFORMED VIDHYA THAT PATIENT WITHOUT CHEMICAL PROPHYLAXIS VTE SCORE 4. PER VIDHYA PATIENT MIGHT HAVE POSSIBLE DEBRIDEMENT PENDING CONSULT AND NO ORDER FOR CHEMICAL PROPHYLAXIS AT THIS TIME. PER VIDHYA HE WILL LOOK OVER IF NEEDED.
[2020-02-02] MEDS: CEFEPIME 1 GM in IV D5W 50 ML IV SCH ×2 (12:00→12:32)
--- NOTE | 2020-02-02 12:00 | NUR ---
MS RN NOTE PATIENT REFUSING PHOTOS TO BE TAKEN FOR SKIN ASSESSMENT, DESPITE EDUCATION OF RISKS VS BENEFITS.
--- NOTE | 2020-02-02 12:01 | NUR ---
MS RN NOTE PER ZAKIA KEE DC MORPHINE AND NORCO ORDERED.
[2020-02-02 12:20] VITALS: BP 113/59
[2020-02-02] MEDS: oxyCODONE/APAP (5/325 MG) 1 UDTAB TABLET PO PRN ×3 (12:28→23:28)
--- NOTE | 2020-02-02 12:36 | NUR ---
MS RN NOTE PATIENT REQUESTED OXYCODONE FOR GENERALIZED PAIN 12/01. OXYCODONE GIVEN ORDERED. PATIENT REFUSING MAXIPIME 1200 DOSE. PATIENT STATES "I DONT BELIEVE IN ANTIBIOTICS, I DONT WANT ANYTHING YOUR GIVING ME, I DONT CARE WHAT YOU HAVE TO SAY". I EDUCATED RISK VS BENEFITS. PATIENT CONTINUED TO REFUSE.
--- NOTE | 2020-02-02 13:04 | NUR ---
MS RN NOTE INFORMED PATIENT THAT VANCOMYCIN IS SCHEDULED FOR 1200 AND PATIENT HAS REFUSED VANCO TROUGH LAB DRAW MULTIPLE TIMES. PER PATIENT SHE WILL HAVE LAB DRAW NOW BUT WILL NOT TAKE VANCOMYCIN IV. PATIENT GETS AGITATED AND STATES " I TOLD YOU I DONT WANT ANY ANTIBIOTICS, LEAVE ME ALONE AND LET ME REST". DESPITE EDUCATION OF RISKS VS BENEFITS, PATIENT CONTINUES TO REFUSE.
--- NOTE | 2020-02-02 13:10 | NUR ---
MS RN NOTE INFORMED ZAKIA KEE THAT COVID RESULTS CAME BACK NEGATIVE. PER VIDHYA OKAY TO TRANSFER PATIENT TO CLEAN UNIT.
--- NOTE | 2020-02-02 13:50 | NUR ---
MS RN NOTE PATIENT REFUSING TO GIVE BLOOD FOR LAB DRAW VANCO TROUGH AGAIN. PATIENT CONTINUES TO AGREE AND THEN REFUSE WHEN PERFORATING MACHINE OPERATOR COMES FOR LAB DRAW. PATIENT GETS AGITATED WHEN ASKING TO HAVE BLOOD FOR LAB DRAW. EDUCATED RISKS VS BENEFITS. PATIENT CONTINUES TO REFUSE. ZAKIA KEE MADE AWARE THAT PATIENT IS REFUSING TREATMENT AND CARE.
[2020-02-02] MEDS: ENOXAPARIN SODIUM 40 MG/0.4 ML DISP.SYRIN SQ SCH (15:00)
--- NOTE | 2020-02-02 15:02 | NUR ---
MS RN NOTE PATIENT REFUSING LOVENOX 1500 DOSE. EDUCATED RISKS VS BENEFITS. PATIENT CONTINUED TO REFUSE.
[2020-02-02 15:35] VITALS: BP 94/54
--- NOTE | 2020-02-02 15:35 | NUR ---
MS RN NOTES PATIENT RECEIVED FROM MARAL CASTLE TRANSFERRED INTO ROOM 307-1. ALERT AND ORIENTED X 4. PATIENT ON ROOM AIR WITH NO SIGNS OF RESPIRATORY DISTRESS AND WITH EVEN NON-LABORED BREATHING AND NO SOB NOTED. WILL CONTINUE PLAN OF CARE AND CONTINUE TO MONITOR PATIENT.
--- NOTE | 2020-02-02 15:35 | NUR ---
MS RN NOTE PATIENT TRANSFERRED TO 3BEAVER IN BED. PATIENT IN NO ACUTE DISTRESS. NO SOB NOTED. PATIENT BREATHING IS EVEN AND UNLABORED. PATIENT KEPT CLEAN, DRY, AND COMFORTABLE THROUGHOUT MY SHIFT. ENDORSED ALL CARE AND REPORT GIVEN TO WENDY CASTLE FOR JEANIE.
--- NOTE | 2020-02-02 15:46 | NUR ---
CALLED RN @1540. PER RN, PT IS REFUSING EVERYTHING INCLUDING XRAY EXAM. PER RN TO CALL BACK LATER AND CHECK STATUS OF PATIENT.
--- NOTE | 2020-02-02 17:08 | NUR ---
MS RN NOTES PATIENT C/O PAIN, SCANNED PATIENT AND PERCOCET PAIN MEDICATION, OPENED PERCOCET PACKET IN FRONT OF PATIENT THEN PATIENT STATED IT'S NOT PERCOCET AND REFUSED PAIN MEDICATION. WITNESSED BY ANOTHER RN, TIFFANIE. EDUCATION PROVIDED TO PATIENT, BUT PATIENT STRONGLY REFUSED.
--- NOTE | 2020-02-02 17:12 | NUR ---
MS RN NOTES PATIENT AGREED FOR X-RAY TO BE DONE. ONCE X-RAY BROWNFIELD REDEVELOPMENT SPECIALIST CAME AT BEDSIDE, AND PATIENT REFUSED AND STATES SHE DOES NOT WANT IT DONE. INFORMED THE PATIENT BENEFITS AND THE NEED OF THIS DIAGNOSTIC TEST. PATIENT KEPT REFUSING AFTER MULTIPLE ATTEMPTS WERE MADE. WILL CONTINUE TO MONITOR PATIENT.
--- NOTE | 2020-02-02 18:35 | NUR ---
MS RN NOTES PATIENT ALERT AND ORIENTED IN BED RESTING COMFORTABLY. PATIENT ON ROOM AIR WITH NO SIGNS OF RESPIRATORY DISTRESS AT THIS TIME, WITH EVEN NON-LABORED BREATHING, AND NO SOB NOTED. PATIENT SKIN WARM AND DRY TO TOUCH. IV ACCESS INTACT AND PATENT. MET ALL OF PATIENT NEEDS. CONTINUED TO EDUCATE THE PATIENT THE NEEDS OF THE MEDICATIONS AND NEEDS OF PROCEDURES. PATIENT STATES SHE HAS GENERALIZED PAIN 10/10, PROVIDED COMFORT MEASURES TO PATIENT AND OFFERED PAIN MEDICATION HOWEVER PATIENT KEPT REFUSING. SAFETY PRECAUTIONS IMPLEMENTED WITH BED LOCKED, BED IN THE LOWEST POSITION, BED ALARM ON, BILATERAL SIDE RAILS UP AND CALL LIGHT WITHIN EASY REACH OF THE PATIENT. WILL ENDORSE PLAN OF CARE TO UPCOMING NURSE.
--- NOTE | 2020-02-02 19:35 | NUR ---
MS RN NOTES RECEIVED ON BED A/O X4,BREATHING REGULAR,NOT IN ANY FORM OF DISTRESS.APPEARS CHAPIN,TRYING TO LET HER KNOW ABOUT HER MEDICATIONS FOR TONIGHT AND SHE SAID "I DONT NEED ANY ANTIBIOTICS AND IN DONT NEED SALINE IV".EXPLAINED RISK AND BENEFITS BUT STILL REFUSED.BERRY CATH IN PLACE DRAINING YELLOWISH OUTPUT.SHE SAID SHE DONT WANT TO BE BOTHER AT NIGHT,CLOSED THE DOOR AND COMEBACK IN THE MORNING FOR BREAKFAST.CHARGE NURSE MADE AWARE.
[2020-02-02 20:00] VITALS: BP 95/49
--- NOTE | 2020-02-02 20:00 | NUR ---
MS RN NOTES OFFERED TO HUNG VANCOMYCIN IV,REFUSED
--- NOTE | 2020-02-02 23:28 | NUR ---
MS RN NOTES PAIN MANAGEMENT C/O GENERALIZED BODY PAIN,MEDICATED WITH OXYCODONE 1 TAB PO FOR PAIN SCALE OF 8/10.OFFERED AGAIN IVF BUT REFUSED.
--- NOTE | 2020-02-03 | NUR ---
MS RN NOTES OFFERED IV ABX BUT REFUSED.DESPITE ADVISED WITH RISK AND BENEFITS.
[2020-02-03] MEDS: VANCOMYCIN 1 GM in IV D5W 250 ML IV SCH ×3 (04:00→20:00)
--- NOTE | 2020-02-03 04:00 | NUR ---
MS RN NOTES REFUSED IV VANCOMYCIN.EXPLAINED RISK AND BENEFITS,STILL REFUSED .
--- NOTE | 2020-02-03 06:40 | NUR ---
MS RN NOTES IN ROOM,ABLE TO SLEEP WITH OXYCODONE 1 TAB PO.SHE DOESNT WANT TO BE BOTHER WHILE ASLEEP,AND WANTS THE DOOR CLOSE ALL THE TIME,AWAITING PYSCH CONSULT.POSSIBLE WOUND DEBRIDEMENT SACRAL AREA,REFUSED TO HAVE PHOTOS.IN NO ACUTE DISTRESS.WILL ENDORSE TO DAY NURSE FOR JEANIE.
--- NOTE | 2020-02-03 07:30 | NUR ---
MS/RN NOTE THE PATIENT IS RECEIVED IN BED. THE PATIENT IS ALERT AND ORIENTED X4. DENIES PAIN. THE PATIENT IN NO APPARENT DISTRESS. IN ROOM AIR AND DENIES SOB. RESPIRATION REGULAR AND UNLABORED. LEFT HAND G 18 PATENT AND SALINE LOCKED.REFUSING IV FLUIDS. BED LOW AND LOCKED. SIDE RAILS UP X3. CALL LIGHT WITHIN REACH. WILL CONTINUE TO MONITOR.
[2020-02-03] MEDS ORDERED: NALOXONE HCL 0.4 MG/ML AMPUL IV PRN ×2 (08:30→09:00)
[2020-02-03] MEDS ORDERED: oxyCODONE HCL SR 10MG TAB.SR.12H PO PRN (08:30)
[2020-02-03] MEDS: ENOXAPARIN SODIUM 40 MG/0.4 ML DISP.SYRIN SQ SCH (09:00)
[2020-02-03] MEDS ORDERED: oxyCODONE HCL SR 10MG TAB.SR.12H PO SCH (09:00)
--- NOTE | 2020-02-03 09:17 | NUR ---
MS/RN NOTE THE PATIENT REFUSED LOVENOX DUE AT 0900 DESPITE EXPLAINING RISKS AND BEMEFITS MULTIPLE TIMES.
--- NOTE | 2020-02-03 09:57 | NUR ---
WOUND CARE CONSULT: PT REFUSED SKIN ASSESSMENT. RECOMMENDATIONS MADE FOR SKIN PROTECTION AND DISCUSSED WITH NURSING STAFF. PER NURSING REPORT, PT HAS REDNESS AND EDEMA TO LOWER LEGS WELL SACRAL WOUND, FULL THICKNESS. RECOMMEND SURGICAL CONSULT. DR GREENE NOTIFIED OF CONSULT REQUEST. IN AGREEMENT WITH PLAN OF CARE. PT IS ON MELBA ISOFLEX LOW AIRLOSS BED.
--- NOTE | 2020-02-03 11:09 | NUR ---
MS/RN NOTE RECEIVED A CALL FROM PHARMACY ([facility]) INFORMING THAT VANCO TROUGH LEVEL DUE AT 1100 NOT TO BE DONE BECAUSE THE PATIENT HAS NOT BEEN TAKING VANCOMYCIN CONSISTENTLY ORDERED.
[2020-02-03] MEDS: CEFEPIME 1 GM in IV D5W 50 ML IV SCH ×4 (12:00→23:11)
[2020-02-03 12:01] LABS: CREATININE 0.6 mg/dL (0.6-1.3)
[2020-02-03 12:29] LABS: BASOPHILS # (AUTO) 0.3 /CMM (0.0-0.2); BASOPHILS % (AUTO) 2.2 % (0.0-2.0); EOSINOPHILS % (AUTO) 7.9 % (0.0-6.0); HEMATOCRIT 33 % (33-45); HEMOGLOBIN 10.8 g/dL (11.5-14.8); LYMPHOCYTES # (AUTO) 1.3 /CMM (0.8-4.8); LYMPHOCYTES % (AUTO) 10.6 % (20.0-44.0); MEAN CORPUSCULAR HGB CONC 32 g/dl (31.0-36.0); MEAN CORPUSCULAR VOLUME 95 fL (82-100); MONOCYTES # (AUTO) 0.6 /CMM (0.1-1.30); MONOCYTES % (AUTO) 4.9 % (2.0-12.0); NEUTROPHILS % (AUTO) 74.4 % (43.0-81.0); PLATELET COUNT (AUTO) 577 /CMM (150-450); RED BLOOD CELL COUNT(AUTO) 3.51 MIL/uL (4.0-5.2); WHITE BLOOD COUNT (AUTO) 12.2 K/uL (4.3-11.0)
--- NOTE | 2020-02-03 12:49 | NUR ---
MS/RN NOTE MAXIPIME AND VANCOMYCIN REFUSED BY THE PATIENT DESPITE EXPLAINING RISKS AND ENEFITS MULTIPLE TIMES. WOLFGANG KEE IS MADE AWARE.
--- NOTE | 2020-02-03 13:25 | NUR ---
Shearer Operator consult requested by Papo Phan as patient is homeless. Patient refused to speak with this SW.
[2020-02-03 16:09] VITALS: BP 91/44
--- NOTE | 2020-02-03 19:09 | NUR ---
MS/RN NOTE THE PATIENT ALERT AND ORIENTED X4. RESPIRATION REGULAR AND UNLABORED. THE PATIENT NON-COMPLIANT WITH MEDICATION AND TREATMENT PLAN DESPITE EXPLAINING RISKS AND BENEFITS MULTIPLE TIMES. PATIENT NON COMPLIANT WITH TURNING AND REPOSITIONING. BED LOW AND LOCKED. SIDE RAILS UP X3. CALL LIGHT WITHIN REACH. WILL ENDORSE TO MOLDER INFLATED BALL.
--- NOTE | 2020-02-03 19:20 | NUR ---
RN medsurg opening notes Received Pt from morning nurse. Pt is resting in bed comfortably. Pt is alert and orientedX3. Respiration is normal in room air. No SOB. No S/S of distress noted. IV sites at L hand is clean, intact and SL. Pantoja cath is clean, intact and draining yellow urine. Pt refused skin assessment. Pt is non compliant with meds and keep refusing meds. MD is notified and aware. Charge nurse is notified and aware. Safety precautions is maintained. Bed at low position, brakes locked, side rails upX2 and call light is within reach. Will continue to monitor.
[2020-02-03 20:00] VITALS: BP 88/52
[2020-02-03 20:16] VITALS: BP 88/52
--- NOTE | 2020-02-03 20:17 | NUR ---
RN chantell notes Pt refused vanco abx due at 1999. Pt gets agitated easily. Pt stated "No. I don't want antibiotics!" Made aware risks and benefits. Pt keep refusing. Pt stated "Just give me sandwich and two apple juice and closed the door and don't bother me!! I want to sleep!!" Charge nurse is aware and informed. Will continue to monitor.
--- NOTE | 2020-02-03 20:30 | NUR ---
TIN abdul notes Pt refused to have second BP checked. Made aware risks and benefits. Pt keep refusing. Will continue to monitor.
--- NOTE | 2020-02-03 23:12 | NUR ---
RN medsurg notes Pt refused maxipime abx. Made aware risks and benefits. Pt keep refusing. Will continue to monitor.
[2020-02-04] MEDS: VANCOMYCIN 1 GM in IV D5W 250 ML IV SCH ×3 (03:13→20:00)
--- NOTE | 2020-02-04 03:13 | NUR ---
RN medsurg notes Pt refused vanco abx. Made aware risks and benefits. Offered multiple times. Pt keep refusing. Charge nurse is aware and informed. Will continue to monitor.
--- NOTE | 2020-02-04 05:00 | NUR ---
TIN medsur notes Pt refused to be change and clean. Pt stated "NO!" Offered several times. Made aware risks and benefits. Pt keep refusing. Will continue to monitor.
--- NOTE | 2020-02-04 06:44 | NUR ---
RN medsurg closing notes Pt is resting in bed comfortably. Pt is alert and orientedX3. Respiration is normal in room air. No SOB. No S/S of distress noted. IV sites at L hand # 18 is clean, intact and SL. Pantoja cath is clean, intact and draining yellow urine 2100ml. Pt is non compliant with meds and treatments. Pt refused to be change and clean. Made aware risks and benefits. Pt keep refusing. Safety precautions is maintained. Bed at low position, brakes locked, side rails upX2, HOB elevated and call light is within reach. Will endorse to morning nurse for JEANIE.
--- NOTE | 2020-02-04 07:30 | NUR ---
RN Opening note Received patient AO x 4, able to responds all stimuli. Patient does no appears pain or discomfort, skin is warm to touch, keep clean/dry, intact IV site, patient refused meds.. Respiratory even and unlabored on room air, o2sat 99%. Kept bed in locked with elevated HOB for ensure air and aspiration precaution. Call light within reach, will continue to monitor.
[2020-02-04 08:00] VITALS: BP 100/65
[2020-02-04] MEDS: ENOXAPARIN SODIUM 40 MG/0.4 ML DISP.SYRIN SQ SCH (09:00)
[2020-02-04 11:03] LABS: BASOPHILS % (AUTO) 0.3 % (0.0-2.0); HEMATOCRIT 36 % (33-45); HEMOGLOBIN 11.7 g/dL (11.5-14.8); LYMPHOCYTES # (AUTO) 2.8 /CMM (0.8-4.8); LYMPHOCYTES % (AUTO) 22.5 % (20.0-44.0); MEAN CORPUSCULAR HGB CONC 32 g/dl (31.0-36.0); MEAN CORPUSCULAR VOLUME 96 fL (82-100); MONOCYTES # (AUTO) 0.9 /CMM (0.1-1.30); MONOCYTES % (AUTO) 7.1 % (2.0-12.0); NEUTROPHILS # (AUTO) 8.5 /CMM (1.8-8.9); NEUTROPHILS % (AUTO) 68.1 % (43.0-81.0); PLATELET COUNT (AUTO) 647 /CMM (150-450); RED BLOOD CELL COUNT(AUTO) 3.81 MIL/uL (4.0-5.2); WHITE BLOOD COUNT (AUTO) 12.5 K/uL (4.3-11.0)
[2020-02-04 11:16] LABS: CALCIUM, SERUM 8.2 mg/dL (8.5-10.1); CREATININE 0.5 mg/dL (0.6-1.3); POTASSIUM 4.2 mmol/L (3.5-5.1)
[2020-02-04] MEDS: CEFEPIME 1 GM in IV D5W 50 ML IV SCH (12:00)
[2020-02-04] MEDS ORDERED: CIPR500T5 PO (12:06)
[2020-02-04] MEDS ORDERED: DOXY100C2 PO (12:06)
--- NOTE | 2020-02-04 18:30 | NUR ---
RN Closing note Received patient is in bed resting, noticed confuse and screaming, given Dilaudid for right hip pain at evening, does no appears pain or discomfort at this time. Skin is warm to touch, keep clean/dry, intact IV site. Respiratory even and unlabored on room air, o2sat 100%. Kept bed in locked with elevated HOB for ensure air and aspiration precaution. Call light within reach, will continue to monitor. Addendum: 02/04/20 at 1939 by EMERY GOLDEN RN Error
--- NOTE | 2020-02-04 18:37 | NUR ---
[facility] given report Liza RN, patient refused all due meds, take wound pictures and sign discharge instruction.
--- NOTE | 2020-02-04 19:00 | NUR ---
Ambulance will pick pack worker patient at 1930, given report warehouse worker 2nd shift.
[2020-02-04 20:00] VITALS: BP 103/61
--- NOTE | 2020-02-04 20:19 | NUR ---
MS/TELE/RN DURING INITIAL SHIFT ASSESSMENT, PATIENT WAS AWAKE, ALERT, COMFORTABLE, NO DISTRESS NOTED, DISCHARGE TO [facility] TONIGHT, WAITING FOR AMBULANCE SANE NURSE, WILL MONITOR.
[2020-02-04] MEDS ORDERED: LORAZEPAM INJ 2 MG/ML VIAL IM ONE (21:30)
--- NOTE | 2020-02-04 21:59 | NUR ---
MS/TELE/RN THE AMBULANCE WAS HERE AT AROUND 1999, HOWEVER PATIENT REFUSES TO GO, REFUSES THE VITAL SIGNS TO BE TAKEN BY THE AMBULANCE, THE CHARGE NURSE CALLED THE SISTER, PAUL, , PER PAUL, PATIENT DOES NOT HAVE DPOA IS NOT CAPABLE OF MAKING DECISIONS FOR HERSELF, PER SISTER SHE IS AGREEABLE TO THE DISCHARGE. PARESH POTTER MADE AWARE AND ORDERED TO GO AHEAD WITH THE DISCHARGE. RETAIL ASSOCIATE, BEBE MADE AWARE. PATIENT BECAME AGITATED, OBTAINED ORDER FOR ATIVAN [address] YODER. ATIVAN 1 MG IM WAS GIVEN AT 2137, EMT WAS ABLE TO TAKE THE VITAL SIGNS AFTERWARDS, BP 110/65, HR 94, RR 18, TEMP 99F, O2 SAT 96% ON RA. PATIENT LEFT THE FLOOR AT 2155 IN STABLE CONDITION. RUBINA DAVIS WAS UPDATED, SPOKE TO TIN CID.
--- NOTE | 2020-02-05 06:33 | NUR ---
MS/TELE/RN ATIVAN 1 MG IM WAS GIVEN AT 8 PRIOR TO DISCHARGING THE PATIENT DUE TO SEVERE AGITATION. I WASTED 1 MG AND PLACED IT IN THE MEDICATION DESTROYER CONTAINER WITH CHARGE NURSE TRISH A WITNESS HOWEVER, FORGOT TO DOCUMENT WASTE IN THE OMNICELL. ATTEMPTED TO DOCUMENT THE WASTE IN THE OMNICELL BUT UNABLE THE PATIENT WAS ALREADY DISCHARGED FROM THE SYSTEM. PHARMACIST AMBER WAS MADE AWARE THIS A.M.
== END 2020-02-04 22:25 | DRG 383 ==
LOC: ER 10:41 → MEDSG2 15:38 → MED 02-02 15:20
PROVIDERS: ADMIT Nurse Practitioner Acute Care; ATTEND Nurse Practitioner Acute Care
DX: L03.319 Cellulitis of trunk, unspecified (principal); E44.0 Moderate protein-calorie malnutrition; E86.0 Dehydration; E87.1 Hypo-osmolality and hyponatremia; Z91.19 Patient's noncompliance with other medical treatment and regimen; Z85.9 Personal history of malignant neoplasm, unspecified; R32 Unspecified urinary incontinence; R73.9 Hyperglycemia, unspecified; G82.20 Paraplegia, unspecified; L89.159 Pressure ulcer of sacral region, unspecified stage; E86.1 Hypovolemia; F29 Unspecified psychosis not due to a substance or known physiological condition; Z87.828 Personal history of other (healed) physical injury and trauma; F17.200 Nicotine dependence, unspecified, uncomplicated; Z59.0 Homelessness; Z86.59 Personal history of other mental and behavioral disorders
CPT/HCPCS: 36415; 71045-TC; 80048-TC; 80053-TC; 80076-TC; 83605-TC; 83735-TC; 84100-TC; 84484-TC; 85025-TC; 85652-TC; 85730-TC; 87040-TC; 87081-TC; A6253; G0378; J0692; J1650; J2060; J2270; J2405; J3370; J7030; J7050; J7060; U0003-CS

== ENCOUNTER 2020-04-06 04:28 | Emergency (ER) | payer MEDICAID, OTHER ==
[~2020-04-06] VITALS: Ht 162.6 cm; Wt 59.9 kg
[~2020-04-06 04:28] MED LIST changes: -BENZ1TAB7 PO; +CIPR500T5 PO; -DIVA500T2 PO; +DOXY100C2 PO; -HALO2ORA3 PO
[2020-04-06 04:34] VITALS: BP 130/78
--- NOTE | 2020-04-06 07:12 | NUR ---
Patient discharged to home in stable condition. Written and verbal after care instructions given. Patient verbalizes understanding of instruction.
--- NOTE | 2020-04-06 07:12 | NUR ---
Patient given written and verbal discharge instructions. Patient verbalizes understanding of instructions. Patient is ambulatory with steady gait. Refuses offer of skilled nursing placement. Patient given list of available shelters in surrounding area.
== END 2020-04-06 07:14 | disposition home or self-care (01) ==
LOC: ER 04:28
DX: M79.661 Pain in right lower leg (principal); M79.662 Pain in left lower leg; R22.43 Localized swelling, mass and lump, lower limb, bilateral; G89.29 Other chronic pain; F32.9 Major depressive disorder, single episode, unspecified; F20.9 Schizophrenia, unspecified; Z59.0 Homelessness; Z79.899 Other long term (current) drug therapy
CPT/HCPCS: 93971-TC

== ENCOUNTER 2020-04-07 07:13 | Inpatient (IN) | payer OTHER ==
[~2020-04-07] VITALS: Ht 162.6 cm; Wt 59.9 kg
--- NOTE | 2020-04-07 07:30 | NUR ---
BIB SELF C/O BLE PAIN 6/10 WITH SWELLING. VS CHECKED. MD BY BEDSIDE.
--- NOTE | 2020-04-07 07:32 | NUR ---
SEEN AND EXAMINED BY .
[2020-04-07] MEDS ORDERED: HYDROCODONE/APAP 5/325MG TABLET ONE ×2 (07:57→07:59)
--- NOTE | 2020-04-07 07:59 | NUR ---
ER PHLEB AT BEDSIDE FOR BLOOD DRAW.
[2020-04-07] MEDS ORDERED: HYDROCODONE/APAP 5/325MG TABLET PO ONE (08:00)
[2020-04-07 08:23] LABS: BASOPHILS # (AUTO) 0.1 /CMM (0.0-0.2); BASOPHILS % (AUTO) 0.7 % (0.0-2.0); HEMATOCRIT 41 % (33-45); LYMPHOCYTES # (AUTO) 3.4 /CMM (0.8-4.8); LYMPHOCYTES % (AUTO) 32.5 % (20.0-44.0); MEAN CORPUSCULAR HGB CONC 32 g/dl (31.0-36.0); MEAN CORPUSCULAR VOLUME 95 fL (82-100); MONOCYTES # (AUTO) 0.7 /CMM (0.1-1.30); MONOCYTES % (AUTO) 6.4 % (2.0-12.0); NEUTROPHILS % (AUTO) 58.4 % (43.0-81.0); PLATELET COUNT (AUTO) 405 /CMM (150-450); RED BLOOD CELL COUNT(AUTO) 4.26 MIL/uL (4.0-5.2); WHITE BLOOD COUNT (AUTO) 10.3 K/uL (4.3-11.0)
[2020-04-07 08:24] LABS: CALCIUM, SERUM 8.9 mg/dL (8.5-10.1); CREATININE 0.5 mg/dL (0.6-1.3); POTASSIUM 3.7 mmol/L (3.5-5.1)
--- NOTE | 2020-04-07 08:40 | NUR ---
TECH AT BEDSIDE FOR US.
--- NOTE | 2020-04-07 11:59 | NUR ---
called case work aide for SNF placement and made aware.
--- NOTE | 2020-04-07 13:14 | NUR ---
COVID SWAB DONE SENT TO LAB
--- NOTE | 2020-04-07 13:39 | NUR ---
received a lab result Addendum: 04/07/20 at 1339 by BLAIRJO received a call from the lab regarding covid 19 result "negative"
[2020-04-07] MEDS ORDERED: IOHEXOL-300 100 ML VIAL IV ONE (19:17)
[2020-04-07] MEDS ORDERED: IV NS 0.9% 250 ML IV ONE (19:17)
--- NOTE | 2020-04-07 19:25 | NUR ---
BROUGHT TO CT
--- NOTE | 2020-04-07 20:52 | NUR ---
CALLED [facility], [place] MD
--- NOTE | 2020-04-07 21:51 | NUR ---
[id number]
[2020-04-07 22:14] LABS: BILIRUBIN,URINE NEGATIVE (NEGATIVE); BLOOD, URINE SMALL Ery/uL (NEGATIVE); COLOR,URINE YELLOW (YELLOW); LEUKOCYTE ESTERASE ,URINE NEGATIVE (NEGATIVE); NITRITE, URINE NEGATIVE (NEGATIVE); PH,URINE 6.5 (5.0-8.0); PROTEIN,URINE NEGATIVE (NEGATIVE); UGLUCOSE NEGATIVE (NEGATIVE); UROBILINOGEN,URINE 0.2 EU/dL (0.2)
--- NOTE | 2020-04-07 22:16 | NUR ---
TRIED TO GIVE REPORT, NURSE IS BUSY, WILL CALL BACK.
[2020-04-07 22:21] LABS: BACTERIA,URINE None seen /HPF (None Seen); SQUAMOUS EPITHELIAL CELL,UR Few /HPF (None Seen); WBC,URINE 0-2 /HPF (0-3)
--- NOTE | 2020-04-07 22:22 | NUR ---
REPORT GIVEN TO CHERIE CASTLE FOR JEANIE.
--- NOTE | 2020-04-07 22:38 | NUR ---
PT TRANSFERED PER ACLS PROTOCOL
--- NOTE | 2020-04-07 23:05 | NUR ---
RN: ADMISSION 54 SinaY Addendum: 04/07/20 at 2306 by CHERIE CAIN RN Cancelled above notes, documentation not complete.
--- NOTE | 2020-04-07 23:06 | NUR ---
MS RN: ADMISSION 54 years old female, Alert oriented to self, refused to answer further admission assessment. Unwilling to give medical information to nurse. Skin check incomplete, patient agreed with skin photos of her wounds but refused to check her upper body. Patient diaper soaking wet with urine with foul odor, poor hygiene. Patient gets irritable easily, uncooperative, refused vital signs. Instruction provided to patient on how to use call light and operate bed, patient stated "leave me alone, this is my hospital" witnessed by VAISHALI Stevens.
[2020-04-08] MEDS ORDERED: HYDROCODONE/APAP 5/325MG TABLET PO PRN (01:00)
[2020-04-08] MEDS ORDERED: MAG HYDROX/AL HYDROX/SIMETH 30 ML UDC PO PRN (01:00)
[2020-04-08] MEDS ORDERED: ZOLPIDEM TARTRATE 5 MG TABLET PO PRN (01:00)
[2020-04-08] MEDS ORDERED: MAGNESIUM HYDROXIDE 30 ML UDC PO PRN (01:00)
[2020-04-08] MEDS ORDERED: ACETAMINOPHEN 325 MG TABLET PO PRN (01:00)
[2020-04-08] MEDS ORDERED: ONDANSETRON HCL/PF 4 MG/2 ML VIAL IVP PRN (01:00)
[2020-04-08] MEDS ORDERED: Z GUARD REMEDY 2 OZ OINT TP PRN (01:00)
--- NOTE | 2020-04-08 06:39 | NUR ---
MS RN: END OF SHIFT REPORT Patient in bed, uncooperative with care. No IV peripheral line, refused insertion, declined education. Irritable and angry behavior, verbally aggressive to staff. Patient is homeless, workers compensation claims adjuster, Case management for placement. Refused SCD. Will endorse to oncoming RN.
--- NOTE | 2020-04-08 08:00 | NUR ---
MS RN NOTES PATIENT IN BED RESTING NO SOB OR ACUTE DISTRESS NOTED. PATIENT ALERT, ORIENTED X3. PATIENT WITH NO PERINEAL IV, MD AWARE. SAFETY MEASURES IN PLACE WILL CONTINUE TO MONITOR.
--- NOTE | 2020-04-08 10:00 | NUR ---
MS RN NOTES PATIENT REFUSING ALL TREATMENT. PATIENT YELLING AND THROWING THINGS. PATIENT ALSO REFUSING GRAPE PICKER. PATIENT CUSSED AT DR. HERNADEZ AND ASKED HIM TO LEAVE THE ROOM.
--- NOTE | 2020-04-08 18:46 | NUR ---
MS RN NOTES PATIENT IN BED RESTING NO SOB OR ACUTE DISTRESS NOTED. PATIENT NONE COMPLIANT WITH CARE. PATIENT WITH NO PERIPHERAL IV, REFUSING INSERTION. PATIENT NOTED TALKING TO HERSELF, YELLING AT STAFF. WILL ENDORSE CARE TO PM SHIFT.
--- NOTE | 2020-04-08 20:00 | NUR ---
RN NOTES PT. REFUSED TO HAVE HER V/S CHECKED, CHARGE NURSE MADE AWARE
--- NOTE | 2020-04-08 20:00 | NUR ---
RN NOTES RECEIVED PT. AWAKE ON BED, A/OX3, NON COMPLIANT , NOT IN DISTRESS, BED IN LOCKED POSITION, CALL LIGHT WITHIN REACH, SIDERAILSUPX2, CONTINUE TO MONITOR
--- NOTE | 2020-04-09 06:15 | NUR ---
RN NOTES AWAKE, REFUSED MORNING CARE, NON-COMPLIANT, NOT IN DISTRESS. , SCREAMER, NO PAIN NOTED, CALL LIGHT WITHIN REACH, SIDERAILS UPX2, PT. NEEDS ATTENDED
--- NOTE | 2020-04-09 08:07 | NUR ---
MS RN NOTES PATIENT IN BED RESTING. ALERT, ORIENTED X3. NO SOB OR ACUTE DISTRESS NOTED. PATIENT WITH NO PERIPHERAL IV. PATIENT NONE COMPLIANT TO CARE. SAFETY MEASURES IN PLACE. WILL CONTINUE TO MONITOR.
--- NOTE | 2020-04-09 10:54 | NUR ---
MS RN NOTES PATIENT REFUSING RADIO EQUIPMENT INSTALLER, ALSO REFUSING LINEN CHANGE OR SKIN CARE. REFUSING FOR SN TO PROVIDED SALVADOR CARE. ONLY ASKS TO DIAPERS AND APPLIES IT HERSELF.
--- NOTE | 2020-04-09 11:27 | NUR ---
WOUND CARE CONSULT: PT REFUSED SKIN ASSESSMENT, REFUSES LOW AIRLOSS MATTRESS. RECOMMEND SURGICAL CONSULT FOR WOUNDS BASED ON NURSING DOCUMENTATION AND PHOTOS. DR GREENE AND DR REED NOTIFIED OF PT READMISSION. IN AGREEMENT WITH PLAN OF CARE. Addendum: 04/09/20 at 1131 by VERONIKA NEWMAN WNDNU RECOMMENDATIONS MADE FOR SKIN PROTECTION. DISCUSSED WITH NURSING STAFF.
--- NOTE | 2020-04-09 18:17 | NUR ---
MS RN NOTES PATIENT IN BED RESTING NO SOB OR ACUTE DISTRESS NOTED. PATIENT DEMANDING, YELLING AT STAFF. PATIENT ALSO PARANOID STATING HER FOOD HAS BEEN SOAKED IN BLEACH. PATIENT ALSO NOTED THROWING THINGS AT STAFF. PATIENT REFUSING VITAL SIGNS TO BE TAKEN. PATIENT WITH NO PERIPHERAL IV. WILL ENDORSE CARE TO PM SHIFT.
--- NOTE | 2020-04-09 19:20 | NUR ---
MS RN OPENING NOTES RECEIVED PATIENT IN BED RESTING, NO SOB OR ACUTE DISTRESS NOTED. PATIENT ALERT, ORIENTED X3. PATIENT WITH NO PERINEAL IV, MD AWARE. BED IN LOWEST POSITION & LOCKED. SAFETY MEASURES IN PLACE. WILL CONTINUE TO MONITOR FOR ANY CHANGES.
[2020-04-09 20:00] VITALS: BP 99/64
[2020-04-09 21:15] VITALS: BP 99/64
--- NOTE | 2020-04-09 21:40 | NUR ---
MS RN NOTE PATIENT REFUSED SKIN BARRIER CREAM FOR BUTTOCKS & REFUSED TO BE TOUCHED, STATED," LEAVE, DON'T TOUCH ME, GIVE ME SOME PRIVACY." PATIENT ALSO REFUSED MEPILEX TO BE APPLIED TO HER LEFT HEEL. UNCOOPERATIVE WITH CARE. WILL CONTINUE TO MONITOR CLOSELY.
--- NOTE | 2020-04-09 22:00 | NUR ---
MS RN NOTE: REFUSED WOUND TREATMENT PATIENT REFUSED WOUND TREATMENT X 3 ORDERED, NON COMPLAINT WITH CARE.
--- NOTE | 2020-04-10 02:10 | NUR ---
MS RN NOTE PATIENT AGREED & ALLOWED TO APPLY Z GUARD ON BUTTOCKS BUT REFUSED PICTURES & COMPLETE SKIN ASSESSMENT, COVERED HERSELF VERY QUICK.
--- NOTE | 2020-04-10 02:14 | NUR ---
MS RN NOTE PATIENT C/O GENERALIZED BODY PAIN BUT REFUSED TO TAKE ANY PAIN MEDICINE WHEN OFFERED.
--- NOTE | 2020-04-10 06:44 | NUR ---
MS RN CLONING NOTES PATIENT SLEPT INTERMITTENTLY AT NIGHT. EASILY AGITATED. NO SOB OR ACUTE DISTRESS NOTED. PATIENT ALERT, ORIENTED X3. PATIENT WITH NO PERINEAL IV, AWARE. BED IN LOWEST POSITION & LOCKED. SAFETY MEASURES IN PLACE. WILL ENDORSE TO AM RN FOR JEANIE..
[2020-04-10 08:00] VITALS: BP 115/65
--- NOTE | 2020-04-10 10:50 | NUR ---
Patient consulted by dr. Busch.
--- NOTE | 2020-04-10 10:55 | NUR ---
Patient reported to she was diagnosed with Schizoaffective disorder unclear etiology
[2020-04-10] MEDS: QUETIAPINE FUMARATE 25 MG TABLET PO SCH ×3 (12:00→17:07)
[2020-04-10 16:00] VITALS: BP 96/59
--- NOTE | 2020-04-10 16:27 | NUR ---
SW met with the patient at bedside. Patient is a 54 year-old female. Patient was cooperative and calm throughout this assessment. Patient is alert and oriented x4. Patient reports to be homeless however patient reported that she was at [facility] in [place] and would like to return. Per Case Management note, patient left [facility]. Patient reports to use a wheelchair and patient reports that she is not receiving government assistance. Patient reports no drug, alcohol, or cigarette use. Patient denies a mental health diagnosis. Patient denies suicidal and homicidal ideation. Plan: SW will coordinate with nursing and case management to ensure a safe and proper discharge for the patient.
--- NOTE | 2020-04-10 18:32 | NUR ---
Patient awake , alert and oriented x3. Breathing unlabored and even on room air, VS are stable and within baseline, afebrile. Patient refused wound care treatment. All needs attended. Placement is pending. Safety measures implemented and call light within reach. No IV assess per MD. Will endorse to next shift for JEANIE
--- NOTE | 2020-04-10 19:49 | NUR ---
RN OPENING NOTES PATIENT RECEIVED SLEEPING IN BED. STABLE ON RA WITH BREATHING EVEN AND UNLABORED, NO SOB NOTED. NO SIGNS OF ACUTE DISTRESS. NO SIGNS OF PAIN OR DISCOMFORT AT THE MOMENT. NO IV ACCESS- MD AWARE. SAFETY PRECAUTIONS IN PLACE WITH BED IN LOWEST POSITION, CALL LIGHT WITHIN REACH, BREAKS ON, SIDE RAILS UP. WILL CONTINUE TO MONITOR THROUGHOUT THE NIGHT.
[2020-04-10 20:50] VITALS: BP 96/59
--- NOTE | 2020-04-11 02:36 | NUR ---
RN NOTES PATIENT YELLING PROFUSE WORDS, REFUSES TO BE CHANGED.
--- NOTE | 2020-04-11 06:51 | NUR ---
RN CLOSING NOTES PATIENT RESTING IN BED. STABLE ON RA WITH BREATHING EVEN AND UNLABORED, NO SOB NOTED. NO SIGNS OF ACUTE DISTRESS. NO SIGNS OF PAIN OR DISCOMFORT AT THE MOMENT. NO IV ACCESS- MD AWARE. SAFETY PRECAUTIONS IN PLACE WITH BED IN LOWEST POSITION, CALL LIGHT WITHIN REACH, BREAKS ON, SIDE RAILS UP. PATIENT REFUSED TO BE CLEANED THROUGHOUT THE NIGHT. WILL ENDORSE TO ONCOMING SHIFT ABOUT JEANIE.
--- NOTE | 2020-04-11 07:23 | NUR ---
MS RN OPENING NOTES PATIENT RECEIVED AWAKE IN BED IN NO ACUTE SIGNS OF DISTRESS. A/O X3. ABLE TO MAKE NEEDS KNOWN, DENIES PAIN OR ANY DISCOMFORTS AT THIS TIME. ON ROOM AIR, BREATHING EVEN AND UNLABORED. NO IV ACCESS- MD AWARE. SAFETY PRECAUTIONS IN PLACE: BED IN LOWEST LOCKED POSITION, CALL LIGHT WITHIN REACH, BREAKS ON, SIDE RAILS UPX2. WILL CONTINUE TO MONITOR PT ACCORDINGLY.
[2020-04-11] MEDS: QUETIAPINE FUMARATE 25 MG TABLET PO SCH (08:04)
--- NOTE | 2020-04-11 08:38 | NUR ---
RN NOTES PT SCREAMING AND YELLING. VERBALLY ABUSIVE TO STAFF AND REFUSED CARE, SAME REFUSED HER MORNING MEDICATION STATED THAT IT DOESN'T HELP HER. SHE ALSO STATED THAT SHE JUST WANTED TO GET OUT OF THE HOSPITAL [facility]RIE AND LIVE IN THE STREET. EXPLAINED RISKS OF LIVING IN THE STREET BUT STILL INSISTING ON LEAVING AMA. CHARGE NURSE IDALIA INFORMED AND WENT TO SPOKE TO PT AND STILL WANTED TO GO AMA ONCE SHE IS CLEAN.
--- NOTE | 2020-04-11 09:36 | NUR ---
RN NOTES PATIENT IS A/O X4 AND ABLE TO MAKE NEEDS KNOWN. PT LEFT HOSPITAL AGAINST MEDICAL ADVICE WITHOUT BEING SEEN BY ATTENDING PHYSICIAN. ENCOURAGED TO STAY AND EXPLAINED RISKS OF LIVING IN STREET AND SHE VERBALIZED UNDERSTANDING. LEAVING THE HOSPITAL AMA OR TREATMENT CONSENT SIGNED BY PT. JEAN-PIERRE GARCIA MADE AWARE OF PT'S AMA. HOMELESS RESIDENTIAL RESOURCES AND ADDRESSES GIVEN TO PT. PT REFUSED VITALS SIGNS AND PHOTOS OF SKIN ISSUES TO BE TAKEN. NAME ARMBAND REMOVED. PT HAS NO PIV. SHE REFUSED ALSO TO TAKE EXIT CARE FOLDER. PT WAS CLEANED AND CHANGED. PT LEFT UNIT AT 0855 VIA WHEELCHAIR ACCOMPANIED BY VAISHALI BELLE OUTSIDE THE HOSPITAL.
== END 2020-04-11 09:00 | disposition left against medical advice (07) | DRG 40 ==
LOC: ER 07:15 → MED 21:55
PROVIDERS: ADMIT Internal Medicine; ATTEND Nurse Practitioner Acute Care
DX: G95.9 Disease of spinal cord, unspecified (principal); Z91.19 Patient's noncompliance with other medical treatment and regimen; F29 Unspecified psychosis not due to a substance or known physiological condition; Z79.899 Other long term (current) drug therapy; L89.626 Pressure-induced deep tissue damage of left heel; G82.20 Paraplegia, unspecified; F20.9 Schizophrenia, unspecified; F32.9 Major depressive disorder, single episode, unspecified; Z59.0 Homelessness; Z91.14 Patient's other noncompliance with medication regimen; Z87.828 Personal history of other (healed) physical injury and trauma; L89.153 Pressure ulcer of sacral region, stage 3; F17.200 Nicotine dependence, unspecified, uncomplicated; G89.29 Other chronic pain
CPT/HCPCS: 36415; 71045-TC; 73700-TC; 73701-TC; 80048-TC; 81001; 85025-TC; 85610-TC; 85730-TC; 87081-TC; 87086-TC; 93971-TC; 97530-TC; C9803; G0378; J7030; J7050; Q9967

== ENCOUNTER 2020-04-13 22:38 | Emergency (ER) | payer OTHER ==
[~2020-04-13] VITALS: Ht 167.6 cm; Wt 59.9 kg
--- NOTE | 2020-04-13 23:07 | NUR ---
CALLED PT IN WR X3 . NO ONE IN WR AT THIS TIME.
--- NOTE | 2020-04-13 23:13 | NUR ---
called pt in wr x3. no one in wr at this time. will follow up.
[2020-04-14 00:21] VITALS: BP 122/89
--- NOTE | 2020-04-14 00:31 | NUR ---
Patient given written and verbal discharge instructions. Patient verbalizes understanding of instructions. Patient using wheelchair. Refuses offer of [facility] placement. Patient given list of available shelters in surrounding area. Pt cleaned and changed.
== END 2020-04-14 00:31 | disposition home or self-care (01) ==
LOC: ER 22:42
DX: R53.1 Weakness (principal); Z59.0 Homelessness; Z79.899 Other long term (current) drug therapy

== ENCOUNTER 2020-05-16 08:05 | Emergency (ER) | payer MEDICAID ==
[~2020-05-16] VITALS: Ht 165.1 cm; Wt 72.1 kg
--- NOTE | 2020-05-16 08:10 | NUR ---
[id number] [facility] C/O BLE PAIN AND SWELLING. SEEN MULTIPLE TIMES FOR SAME REASON. TO ER BED 11 HOOKED TO BP CUFF AND POX. CHANGED TO HOSP GOWN, WARM BLANKET PROVIDED, PATIENT AAO x 4, BREATHING EVEN AND UNLABORED, NAD NOTED. AWAITING MD GOMEZ.
--- NOTE | 2020-05-16 08:54 | NUR ---
DR GURROLA AT BEDSIDE
[2020-05-16 10:01] LABS: BASOPHILS % (AUTO) 0.4 % (0.0-2.0); EOSINOPHILS % (AUTO) 1.2 % (0.0-6.0); HEMATOCRIT 40 % (33-45); LYMPHOCYTES # (AUTO) 2.3 /CMM (0.8-4.8); LYMPHOCYTES % (AUTO) 23.3 % (20.0-44.0); MEAN CORPUSCULAR HGB CONC 32 g/dl (31.0-36.0); MEAN CORPUSCULAR VOLUME 95 fL (82-100); MONOCYTES # (AUTO) 0.7 /CMM (0.1-1.30); MONOCYTES % (AUTO) 7.3 % (2.0-12.0); NEUTROPHILS # (AUTO) 6.7 /CMM (1.8-8.9); NEUTROPHILS % (AUTO) 67.8 % (43.0-81.0); PLATELET COUNT (AUTO) 503 /CMM (150-450); RED BLOOD CELL COUNT(AUTO) 4.24 MIL/uL (4.0-5.2); WHITE BLOOD COUNT (AUTO) 9.8 K/uL (4.3-11.0)
[2020-05-16 10:25] LABS: ALANINE AMINOTRANSFERASE 24 U/L (12-78); ALBUMIN 3.4 g/dL (3.4-5.0); ALKALINE PHOSPHATASE 95 U/L (46-116); ASPARTATE AMINOTRANSFERASE 31 U/L (15-37); B-TYPE NATRIURETIC PEPTIDE 27 PG/ML (0-125); BILIRUBIN,DIRECT 0.1 mg/dL (0.0-0.2); BILIRUBIN,TOTAL 0.2 mg/dL (0.2-1.0); CALCIUM, SERUM 9.4 mg/dL (8.5-10.1); CARBON DIOXIDE 30 mmol/L (21-32); CHLORIDE 106 mmol/L (98-107); CREATININE 0.5 mg/dL (0.6-1.3); GLUCOSE 96 mg/dL (74-106); POTASSIUM 4.3 mmol/L (3.5-5.1); SODIUM SERUM 144 mmol/L (136-145); TOTAL PROTEIN, SERUM 7.1 g/dL (6.4-8.2); UREA NITROGEN, BLOOD 15 mg/dL (7-18)
[2020-05-16] MEDS ORDERED: SULFAMETH/TRIMETH 800/160 MG 1 UDTAB TABLET PO ONE (11:00)
[2020-05-16] MEDS ORDERED: CEFTRIAXONE 1 G VIAL IM ONE (11:00)
[2020-05-16] MEDS ORDERED: CEFTRIAXONE 1 G VIAL ONE (11:58)
[2020-05-16] MEDS ORDERED: SULFAMETH/TRIMETH 800/160 MG 1 UDTAB TABLET ONE (11:58)
[2020-05-16] MEDS ORDERED: BACI/NEOM/POLY B OINT PKT 1 UDPKT PACKET ONE (11:58)
[2020-05-16] MEDS ORDERED: LIDOCAINE /MPF 1% VIAL 5 ML VIAL ONE (11:59)
[2020-05-16] MEDS ORDERED: NEOMY SULF/BACITRAC ZN/POLY 15 GM TUBE TP SCH (12:00)
--- NOTE | 2020-05-16 12:08 | NUR ---
PATIENT REFUSED IV PERIPHERAL LINE INSERTION
--- NOTE | 2020-05-16 12:41 | NUR ---
PT REFUSED DUPLEX ULTRASOUND. WANTS TO LEAVE ED. PROVIDED W/ WOUND CARE AND NEW PANTS. ACI AND PRESCRIPTION PROVIDED. DISCHARGE IN STABLE CONDITION.
[2020-05-16 12:47] VITALS: BP 122/76
--- NOTE | 2020-05-16 12:55 | NUR ---
Patient is a 55 year-old female. Patient is known to this SW from previous admissions. Patient presented to [facility] ED today for a diaper change and requesting for her feet to be wrapped. Patient and SW discussed homeless community resources and patient declined these resources. SW left a copy of these resources on patient's bed for the patient to take. Prior hospitalizations patient has left AMA during the placement referral process and patient also declined assistance in placement today from this SW. Patient refused to sign homeless patient waiver form. Resources given to this patient were the following: Food Resources: [place] [facility] at [facility]- [address] [facility]. [place]; Meet Each Need with Dignity ([facility]) [address] [facility] Hospital[facility]is Ovando; [facility] [address] [facility]; [facility] [address] [facility]. Mental Health resources provided: [facility] [address] [place], [place] [address] ; [facility] [address] [facility] [address], [place], [place] [id number] ; [facility] [address] DrBeaver Island, [place] [phone] ; [facility] [address] [place], [place] [address] Healthcare Clinics: [facility] [address] [facility], [address] [place]. [place] ; [facility] [address] [facility] [address] [place] [address]; [facility] [address] [facility]. [place] [phone] Winter Shelters: [facility] [place] [facility] [address], [place]uis [place] [address] [address] [place]; [facility] [place] [facility] [address], [place], [address] [address] [place]; [facility] [place]* [facility] Confidential (please call for location) [address]; [facility] [place] [facility] [address] [place] [address] [address] [place]; [facility] [place] [address] [place], [address] 15 Women; [facility] [address] [facility] [address] [address] [place]; First To Serve* [facility] [address]600 [facility], [address] [address] [place]; [facility] [address], [address] 20 Women; [facility] [address] [place] [address], [address] [address]; [facility] [address], [address] 20 Women; Home At Last [facility] [address] [facility], [address] [address]; Home at Last [facility] Facility [address], [address] 20 Males; Home At Last [facility] [address] [facility] [address] Cent[facility] , [address] 20 MONIK; [facility] [place] * Library [address] [address] [address] [place]; Winter Correction Program Sites Transportation roller picker at [facility] (near the Gas Station) - Kierra Manuel/JOS Haro [address] Time: 3:30p.m. to 4:15p.m. and [facility] at [address] [facility] [address] Time: 5:00p.m. No walk-ins allowed. Individuals must be picked up at [facility] ([address] [place] [address]) to access the site. Transportation by bus. Substance Abuse resources provided included: [facility] Substance Abuse Self-Helpline ([facility]) ; CRI -HELP [address] [facility]. [place]. [place] [address] ; [facility] [address] [facility] [address] ; [facility] [address] [place]. [place] [phone] ; [facility] [address] [facility] [phone] ; [facility] [address] [facility] [phone] ; [facility] [address] [facility] [phone] ; [facility] Substance Abuse Helpline([facility] ; [facility] ; [facility] [place]; [facility] [place]; I-ADA [facility] [place] Thuan Vazquez; [facility] [place]; [place]; [facility] [place]; [facility], [facility]. [place]; Alcoholics Anonymous -SFV; Nc-Mpjj-Nvssjaq ; Marijuana Anonymous -SFV; Narcotics Anonymous www.na.org. Hygiene: [facility]: [address] [address]. [place] ; [facility] [address] [facility] ; [facility] [address] KvngThuan [address] .
== END 2020-05-16 12:47 | disposition home or self-care (01) ==
LOC: ER 08:08
DX: L97.519 Non-pressure chronic ulcer of other part of right foot with unspecified severity (principal); R60.0 Localized edema; G89.29 Other chronic pain; F17.200 Nicotine dependence, unspecified, uncomplicated; Z91.19 Patient's noncompliance with other medical treatment and regimen; Z59.0 Homelessness
CPT/HCPCS: 36415; 71045; 80048; 80076; 83880; 84484; 85025; 93005; 99285; J3490; J0696